=== PATIENT | female | born 1995 | race American Indian/Alaskan Native ===

== ENCOUNTER 2019-01-27 08:07 | Emergency (ER) | payer MEDICAID ==
[2019-01-27 09:02] LABS: Bilirubin,Urine NEG (Negative); Blood,Urine NEG (Negative); Color,Urine Yellow (Yellow); Mucus,Urine FEW /HPF; Protein,Urine <15 mg/dL mg/dL (Negative); RBC,Urine < 1.0 /HPF (0.0-6.0); Urobilinogen,Urine < 2.0 mg/dL (<2.0)
[2019-01-27 09:03] LABS: HCG Qualitative,Urine Positive (Negative)
[2019-01-27 09:18] LABS: Basophils % (Auto) 0.5 % (0.0-1.8); Eosinophils # (Auto) 0.1 K/mm3 (0.0-0.4); Eosinophils % (Auto) 1.1 % (0.0-4.3); Hematocrit 35.6 % (30.3-42.9); Hemoglobin 11.8 gm/dl (10.1-14.3); Lymphocytes % (Auto) 21.6 % (13.4-35.0); Mean Corpuscular HGB Conc 33 % (30-34); Mean Corpuscular Volume 82 fl (79-97); Monocytes # (Auto) 0.5 K/mm3 (0.0-0.8); Monocytes % (Auto) 5.7 % (0.0-7.3); Platelet Count 340 K/mm3 (140-440); Red Blood Count 4.31 M/mm3 (3.65-5.03); Red Cell Distribution Width 13.2 % (13.2-15.2)
--- NOTE | 2019-01-27 09:55 | Ultrasound Report ---
ULTRASOUND OB LESS THAN 14 WEEKS FETUS ULTRASOUND OB TRANSVAGINAL HISTORY: with abdominal pain/bleeding FINDINGS: No comparison. Transabdominal and transvaginal ultrasound imaging was performed. The uterus is anteverted and measures 10 x 5 x 6 cm. An intrauterine gestational sac containing a small yolk sac is identified. Gestational sac diameter measures 20.5 mm which correlates with a 7 week 0 day . No convincing pole or cardiac activity could be demonstrated. There is suggestion of a small subchorionic hemorrhage along the inferior border of the gestational sac. The ovaries are normal size, contour and echotexture. No adnexal cyst or mass. No pelvic fluid collection. IMPRESSION: An intrauterine gestational sac containing a yolk sac is identified but no convincing pole or cardiac activity identified. This could represent a normal early . Blighted ovum could also be considered. Close interval followup is recommended. Small subchorionic hemorrhage.
--- NOTE | 2019-01-27 10:12 | Emergency Department Report ---
ED HPI - General Chief complaint: Vaginal Bleeding Stated complaint: STOMACH PAIN/LIGHT BLEEDING/PAIN Time Seen by Provider: 01/27/19 08:47 Source: patient Mode of arrival: Ambulatory Limitations: No Limitations - History of Present Illness Initial comments: Patient is a 23-year-old female who is approximate 5 weeks and whose last missed her period was 12/22/2018 who is here complaining of some lower abdominal discomfort and vaginal bleeding. He states vaginal bleeding started this morning and his decreased. Patient states she saw blood when she wiped after using the bathroom. Patient has some mild crampy lower abdominal discomfort. Patient also states she's felt very weak and fatigued for the last several days. Patient denies any dysuria or urinary frequency fevers chills nausea vomiting and diarrhea at this time. - Related Data Allergies Allergy/AdvReac Type Severity Reaction Status Date / Time No Known Allergies Allergy Unverified 01/27/19 08:08 ED Review of Systems ROS: Stated complaint: STOMACH PAIN/LIGHT BLEEDING/PAIN Other details as noted in HPI Comment: All other systems reviewed and negative ED Past Medical Hx - Past Medical History Previous Medical History?: No - Surgical History Past Surgical History?: No - Social History Smoking Status: Never Smoker Substance Use Type: None ED Physical Exam - General Limitations: No Limitations General appearance: alert, in no apparent distress - Head Head exam: Present: atraumatic, normocephalic - Eye Eye exam: Present: normal appearance - ENT ENT exam: Present: mucous membranes moist - Neck Neck exam: Present: normal inspection - Respiratory Respiratory exam: Present: normal lung sounds bilaterally. Absent: respiratory distress, wheezes, rales, rhonchi - Cardiovascular Cardiovascular Exam: Present: regular rate, normal rhythm, normal heart sounds. Absent: systolic murmur, diastolic murmur, rubs, gallop - GI/Abdominal GI/Abdominal exam: Present: soft, normal bowel sounds. Absent: distended, tenderness, guarding, rebound, rigid - Extremities Exam Extremities exam: Present: normal inspection - Back Exam Back exam: Present: normal inspection - Neurological Exam Neurological exam: Present: alert, oriented X3 - Psychiatric Psychiatric exam: Present: normal affect, normal mood - Skin Skin exam: Present: warm, dry, intact, normal color. Absent: rash ED Course Vital Signs 01/27/19 08:11 Temperature 98.5 F Pulse Rate 93 H Respiratory 16 Rate Blood Pressure 135/79 O2 Sat by Pulse 99 Oximetry ED Medical Decision Making - Lab Data Result diagrams: 01/27/19 09:08 Lab Results 01/27/19 01/27/19 01/27/19 Range/Units 08:48 09:08 09:08 WBC 9.3 (4.5-11.0) K/mm3 RBC 4.31 (3.65-5.03) M/mm3 Hgb 11.8 (10.1-14.3) gm/dl Hct 35.6 (30.3-42.9) % MCV 82 (79-97) fl MCH 27 L (28-32) pg MCHC 33 (30-34) % RDW 13.2 (13.2-15.2) % Plt Count 340 (140-440) K/mm3 Lymph % (Auto) 21.6 (13.4-35.0) % [place] % (Auto) 5.7 (0.0-7.3) % Eos % (Auto) 1.1 (0.0-4.3) % Baso % (Auto) 0.5 (0.0-1.8) % Lymph # 2.0 (1.2-5.4) K/mm3 [place] # 0.5 (0.0-0.8) K/mm3 Eos # 0.1 (0.0-0.4) K/mm3 Baso # 0.0 (0.0-0.1) K/mm3 Seg Neutrophils % 71.1 H (40.0-70.0) % Seg Neutrophils # 6.6 (1.8-7.7) K/mm3 HCG, Quant 54311 H (0-4) mIU/mL Urine Color Yellow (Yellow) Urine Turbidity Clear (Clear) Urine pH 5.0 (5.0-7.0) Ur Specific [place] 1.021 (1.003-1.030) Urine Protein <15 mg/dl (Negative) mg/dL Urine Glucose (UA) Neg (Negative) mg/dL Urine Ketones Neg (Negative) mg/dL Urine Blood Neg (Negative) Urine Nitrite Neg (Negative) Urine Bilirubin Neg (Negative) Urine Urobilinogen < 2.0 (<2.0) mg/dL Ur Leukocyte Esterase Neg (Negative) Urine WBC (Auto) 1.0 (0.0-6.0) /HPF Urine RBC (Auto) < 1.0 (0.0-6.0) /HPF U Epithel Cells (Auto) 2.0 (0-13.0) /HPF Urine Mucus Few /HPF Urine HCG, Qual Positive A (Negative) Blood Type 01/27/19 Range/Units 09:08 WBC (4.5-11.0) K/mm3 RBC (3.65-5.03) M/mm3 Hgb (10.1-14.3) gm/dl Hct (30.3-42.9) % MCV (79-97) fl MCH (28-32) pg MCHC (30-34) % RDW (13.2-15.2) % Plt Count (140-440) K/mm3 Lymph % (Auto) (13.4-35.0) % [place] % (Auto) (0.0-7.3) % Eos % (Auto) (0.0-4.3) % Baso % (Auto) (0.0-1.8) % Lymph # (1.2-5.4) K/mm3 [place] # (0.0-0.8) K/mm3 Eos # (0.0-0.4) K/mm3 Baso # (0.0-0.1) K/mm3 Seg Neutrophils % (40.0-70.0) % Seg Neutrophils # (1.8-7.7) K/mm3 HCG, Quant (0-4) mIU/mL Urine Color (Yellow) Urine Turbidity (Clear) Urine pH (5.0-7.0) Ur Specific [place] (1.003-1.030) Urine Protein (Negative) mg/dL Urine Glucose (UA) (Negative) mg/dL Urine Ketones (Negative) mg/dL Urine Blood (Negative) Urine Nitrite (Negative) Urine Bilirubin (Negative) Urine Urobilinogen (<2.0) mg/dL Ur Leukocyte Esterase (Negative) Urine WBC (Auto) (0.0-6.0) /HPF Urine RBC (Auto) (0.0-6.0) /HPF U Epithel Cells (Auto) (0-13.0) /HPF Urine Mucus /HPF Urine HCG, Qual (Negative) Blood Type B POSITIVE - Radiology Data [facility] [address] [place] [address] Ultrasound Report Signed Patient: VEENA GOMEZ MR#: [id number] : 1995 Acct:[id number] Age/Sex: 23 / F ADM Date: 01/27/19 Loc: ED Attending Dr: Ordering Physician: AURE NARAYANAN MD Date of Service: 01/27/19 Procedure(s): US OB transvaginal Accession Number(s): [id number] cc: AURE NARAYANAN MD ULTRASOUND OB LESS THAN 14 WEEKS FETUS ULTRASOUND OB TRANSVAGINAL HISTORY: with abdominal pain/bleeding FINDINGS: No comparison. Transabdominal and transvaginal ultrasound imaging was performed. The uterus is anteverted and measures 10 x 5 x 6 cm. An intrauterine gestational sac containing a small yolk sac is identified. Gestational sac diameter measures 20.5 mm which correlates with a 7 week 0 day . No convincing pole or cardiac activity could be demonstrated. There is suggestion of a small subchorionic hemorrhage along the inferior border of the gestational sac. The ovaries are normal size, contour and echotexture. No adnexal cyst or mass. No pelvic fluid collection. IMPRESSION: An intrauterine gestational sac containing a yolk sac is identified but no convincing pole or cardiac activity identified. This could represent a normal early . Blighted ovum could also be considered. Close interval followup is recommended. Small subchorionic hemorrhage. Transcribed By: TTR Dictated By: ORI ALEXANDER JR, MD Electronically Authenticated By: ORI ALEXANDER JR, MD Signed Date/Time: 01/27/19949 DD/ 6 TD/TT: 01/27/1950 - Medical Decision Making Patient is a 23-year-old black female who is presenting status post vaginal bleeding and . Ultrasound shows a gestational sac without pole. Patient does have a clot that correlates with the ultrasound findings. Patient will need repeat Quant and 2-3 days. Critical care attestation.: If time is entered above; I have spent that time in minutes in the direct care of this critically ill patient, excluding procedure time. ED Disposition Clinical Impression: Threatened miscarriage Disposition: DC-01 TO HOME OR SELFCARE Is pt being admited?: No Does the pt Need Aspirin: No Condition: Stable Additional Instructions: Your beta quantitative today was 22,900. Please have this repeated in 2-3 days with your [employer] or return to the emergency department. Referrals: PRIMARY CARE,MD [Primary Care Provider] - 3-5 Days Time of Disposition: 10:50
[2019-01-27 11:04] VITALS: BP 131/78
== END 2019-01-27 11:03 | disposition home or self-care (01) ==
LOC: ED 08:07
DX: O20.0 Threatened abortion (principal); Z3A.01 Less than 8 weeks gestation of pregnancy
CPT/HCPCS: 36415; 76801; 76817; 81001; 81025; 84702; 85025; 86900; 86901; 99284

== ENCOUNTER 2019-01-30 10:04 | Emergency (ER) | payer MEDICAID ==
--- NOTE | 2019-01-30 10:30 | Emergency Department Report ---
ED Recheck HPI - General Chief Complaint: Recheck/Abnormal Lab/Rx Stated Complaint: MISCARRIAGE/ABD PAIN Time Seen by Provider: 01/30/19 10:29 Source: patient Mode of arrival: Ambulatory Limitations: No Limitations - History of Present Illness Initial Comments: 23 YO COMES TO ER PER INSTRUCTIONS FOR HCG RE-CHECK. SHE IS HAVING NO PAIN OR BLEEDING. LMP 4-1 [facility]- HAS APPNT SUNDAY - Related Data Allergies Allergy/AdvReac Type Severity Reaction Status Date / Time No Known Allergies Allergy Verified 01/30/19 10:06 ED Review of Systems ROS: Stated complaint: MISCARRIAGE/ABD PAIN Other details as noted in HPI Comment: All other systems reviewed and negative ED Past Medical Hx - Past Medical History Previous Medical History?: No - Surgical History Past Surgical History?: No - Family History Family history: no significant - Social History Smoking Status: Never Smoker Substance Use Type: None ED Physical Exam - General Limitations: No Limitations - Other Other exam information: - Head Head exam: Present: atraumatic, normocephalic - Eye Eye exam: Present: normal appearance, EOMI. Absent: nystagmus - ENT ENT exam: Present: normal exam, normal orophraynx, mucous membranes moist, normal external ear exam, no lymphadenopathy - Neck Neck exam: Present: normal inspection, full ROM. Absent: tenderness, meningismus - Respiratory Respiratory exam: Present: normal lung sounds bilaterally. Absent: respiratory distress, wheezes, rales, rhonchi, stridor, chest wall tenderness, accessory muscle use, decreased breath sounds, prolonged expiratory - Cardiovascular Cardiovascular Exam: Present: regular rate, normal rhythm, normal heart sounds. Absent: bradycardia, tachycardia, irregular rhythm, systolic murmur, diastolic murmur, rubs, gallop, JVD, edema - GI/Abdominal GI/Abdominal exam: Present: soft, non tender on light and deep palpation. Absent: distended, tenderness, guarding, rebound, rigid, pulsatile mass - Rectal Rectal exam: Present: deferred - Extremities Exam Extremities exam: Present: normal inspection, full ROM, other (2+ pulses noted in the bilateral upper extremities. Bilateral lower extremities with 2+ DP bilateral. Full ROM. Absent: calf tenderness - Back Exam Back exam: Present: normal inspection, full ROM. Absent: tenderness, CVA tenderness (R), CVA tenderness (L), paraspinal tenderness, vertebral tenderness - Neurological Exam Neurological exam: Present: alert, oriented X3, normal gait, other (Extraocular movements intact. Tongue midline. No facial droop. Facial sensation intact to light touch in the V1, V2, V3 distribution bilaterally. 5 and 5 strength in 4 extremities.. Sensation is intact to light touch in 4 extremities.). Absent: motor sensory deficit - Psychiatric Psychiatric exam: normal affect and mood - Skin Skin exam: Present: warm, dry, intact, normal color. Absent: rash ED Course Vital Signs 01/30/19 10:08 Temperature 97.9 F Pulse Rate 100 H Respiratory 20 Rate Blood Pressure 111/79 O2 Sat by Pulse 98 Oximetry ED Recheck MDM - Core Measures Measure Exclusions: not indicated - Differential Diagnosis Recheck of Abnormal Lab ro ab - Medical Decision Making RH pos HCG HAS INC SINCE LAST VISIT NO PAIN NO VAG BLEED VSS HAS OB APPNT WITH [facility] ON SUNDAY DC HOME WITH DC PLAN- PELVIC REST, TYLENOL PRN, VITAMIN Vital Signs 01/30/19 10:08 Temperature 97.9 F Pulse Rate 100 H Respiratory 20 Rate Blood Pressure 111/79 O2 Sat by Pulse 98 Oximetry Labs 01/30/19 10:19 HCG, Quant [id number] H Critical care attestation.: If time is entered above; I have spent that time in minutes in the direct care of this critically ill patient, excluding procedure time. ED Disposition Clinical Impression: Threatened miscarriage, Disposition: DC-01 TO HOME OR SELFCARE Is pt being admited?: No Does the pt Need Aspirin: No Condition: Stable Additional Instructions: FOLLOW UP WITH OBGYN ON SUNDAY TYLENOL FOR PAIN NOTHING IN VAGINA NO SEX VITAMIN [place] [address] [place] [id number] Referrals: BILLY MALAGON MD [Staff Physician] - 3-5 Days Time of Disposition: 10:36
[2019-01-30 11:56] VITALS: BP 110/68
== END 2019-01-30 11:45 | disposition home or self-care (01) ==
LOC: ED 10:04
DX: O20.0 Threatened abortion (principal); Z3A.01 Less than 8 weeks gestation of pregnancy
CPT/HCPCS: 36415; 84702; 99283

== ENCOUNTER 2019-06-24 19:56 | Outpatient (CLI) | payer MEDICAID ==
[2019-06-24 20:36] VITALS: BP 124/61
[2019-06-24 23:05] LABS: Bacteria,Urine 3+ /HPF (Negative); Bilirubin,Urine NEG (Negative); Blood,Urine NEG (Negative); Color,Urine Yellow (Yellow); Mucus,Urine FEW /HPF; Protein,Urine <15 mg/dL mg/dL (Negative); Urobilinogen,Urine < 2.0 mg/dL (<2.0)
[2019-06-24] MEDS ORDERED: TYLENOL PO ONE (23:09)
== END 2019-06-24 23:15 | disposition home or self-care (01) ==
LOC: TRG 19:56
PROVIDERS: ATTEND Obstetrics & Gynecology
DX: O47.02 False labor before 37 completed weeks of gestation, second trimester (principal); Z3A.26 26 weeks gestation of pregnancy
CPT/HCPCS: 81001

== ENCOUNTER 2019-08-24 21:33 | Outpatient (CLI) | payer MEDICAID ==
[2019-08-24] MEDS ORDERED: LACTATED RINGERS 500 ML IV ONE (21:58)
[2019-08-24] MEDS ORDERED: LACTATED RINGERS 1,000 ML IV SCH (22:00)
[2019-08-24] MEDS ORDERED: LACTATED RINGERS 500 ML IV SOLN IV ONE (22:00)
[2019-08-24 22:05] VITALS: BP 123/57
[2019-08-24] MEDS ORDERED: ACETAMINOPHEN 325 MG TAB PO ONE (23:26)
[2019-08-25 00:23] LABS: Bacteria,Urine 1+ /HPF (Negative); Bilirubin,Urine NEG (Negative); Blood,Urine NEG (Negative); Color,Urine Amber (Yellow); Mucus,Urine 3+ /HPF
== END 2019-08-25 02:07 | disposition home or self-care (01) ==
LOC: TRG 21:33
PROVIDERS: ATTEND Obstetrics & Gynecology
DX: O62.9 Abnormality of forces of labor, unspecified (principal); O26.893 Other specified pregnancy related conditions, third trimester; R06.02 Shortness of breath; Z3A.35 35 weeks gestation of pregnancy
CPT/HCPCS: 81001; 87400; 87502; 96360; 96361; J7120

== ENCOUNTER 2019-10-25 00:46 | Emergency (ER) | payer MEDICAID ==
[2019-10-25] MEDS ORDERED: ALUM-MAG HYDROXIDE-SIMETHICONE 200-200-20MG/5ML ORAL LIQD 30 ML PO ONE (01:23)
[2019-10-25] MEDS ORDERED: LIDOCAINE VISCOUS 2% 15 ML ORAL LIQD PO ONE (01:24)
[2019-10-25] MEDS ORDERED: HYDROcodone/ACETAMINOPHEN 5-325 MG TAB PO ONE (01:24)
[2019-10-25 01:26] LABS: Basophils # (Auto) 0.1 K/mm3 (0.0-0.1); Basophils % (Auto) 0.6 % (0.0-1.8); Eosinophils # (Auto) 0.1 K/mm3 (0.0-0.4); Eosinophils % (Auto) 1.2 % (0.0-4.3); Hematocrit 39.9 % (30.3-42.9); Hemoglobin 13.2 gm/dl (10.1-14.3); Lymphocytes # (Auto) 2.9 K/mm3 (1.2-5.4); Lymphocytes % (Auto) 28.4 % (13.4-35.0); Mean Corpuscular HGB Conc 33 % (30-34); Mean Corpuscular Volume 80 fl (79-97); Monocytes # (Auto) 0.6 K/mm3 (0.0-0.8); Monocytes % (Auto) 5.4 % (0.0-7.3); Platelet Count 325 K/mm3 (140-440); Red Blood Count 4.99 M/mm3 (3.65-5.03); Red Cell Distribution Width 15.1 % (13.2-15.2)
[2019-10-25 01:30] LABS: Bilirubin,Urine NEG (Negative); Blood,Urine SM (Negative); Color,Urine Yellow (Yellow); Mucus,Urine FEW /HPF; Protein,Urine <15 mg/dL mg/dL (Negative); Urobilinogen,Urine < 2.0 mg/dL (<2.0)
[2019-10-25 01:47] LABS: Alanine Aminotransferase 24 units/L (7-56); BUN/Creatinine Ratio 13; Blood Urea Nitrogen 9 mg/dL (7-17); Calcium 9.4 mg/dL (8.4-10.2); Hemolysis Index 1
--- NOTE | 2019-10-25 02:52 | XRay Report ---
ACUTE ABDOMINAL SERIES 5 VIEWS INDICATION: abd pain. COMPARISON: No relevant prior imaging study available. FINDINGS: No abnormalities on the included chest radiograph. No free air is seen. There is mild constipation. No small bowel dilatation. Phleboliths are noted in the pelvis. IMPRESSION: 1. Constipation. Signer Name: Armand Vallejo MD Signed: 10/25/2019 2:47 AM Workstation Name: [email or web address]
--- NOTE | 2019-10-25 02:58 | Ultrasound Report ---
ULTRASOUND ABDOMEN, LIMITED (RIGHT UPPER QUADRANT) INDICATION: ruq pain. COMPARISON: None available. FINDINGS: Pancreas: Visualized portion shows no significant abnormality. Liver: Normal. Gallbladder: There is minimal cholelithiasis. The gallbladder is otherwise unremarkable. Bile ducts: Normal. Common Bile Duct measures 4 mm. Free fluid: None. Additional Findings: None. IMPRESSION: 1. Minimal cholelithiasis. No sonographic evidence of acute cholecystitis. Signer Name: Armand Vallejo MD Signed: 10/25/2019 2:54 AM Workstation Name: [id number]
[2019-10-25] MEDS ORDERED: MAGNESIUM CITRATE 300 ML ORAL LIQD PO ONE (03:07)
--- NOTE | 2019-10-25 03:09 | Emergency Department Report ---
ED Abdominal Pain HPI - General Chief Complaint: Abdominal Pain Stated Complaint: ABD PAIN Time Seen by Provider: 10/25/19 01:23 Source: patient Mode of arrival: Stretcher Limitations: No Limitations - History of Present Illness Initial Comments: 6 weeks post , not yet sexually active. Severity scale (0 -10): 5 - Related Data Previous Rx's Medication Instructions Recorded Last Taken Type Ferrous Sulfate [Feosol 325 MG tab] 325 mg PO BID #60 tablet 09/18/19 Unknown Rx HYDROcodone/APAP 5-325 [[place] 1 each PO Q6HR PRN #20 tablet 09/18/19 Unknown Rx 5/325] Ibuprofen [Motrin] 800 mg PO Q8HR PRN #30 tablet 09/18/19 Unknown Rx Allergies Allergy/AdvReac Type Severity Reaction Status Date / Time No Known Allergies Allergy Verified 10/25/19 00:52 ED Review of Systems ROS: Stated complaint: ABD PAIN Other details as noted in HPI ED Past Medical Hx - Past Medical History Previous Medical History?: No Hx Hypertension: No Hx Diabetes: No Hx Deep Vein Thrombosis: No Hx Renal Disease: No Hx Sickle Cell Disease: No Hx Seizures: No Hx Asthma: No Hx HIV: No - Surgical History Past Surgical History?: No - Social History Smoking Status: Current Some Day Smoker - Medications Home Medications: Home Medications Medication Instructions Recorded Confirmed Last Taken Type Ferrous Sulfate [Feosol 325 MG tab] 325 mg PO BID #60 tablet 09/18/19 Unknown Rx HYDROcodone/APAP 5-325 [[place] 1 each PO Q6HR PRN #20 tablet 09/18/19 Unknown Rx 5/325] Ibuprofen [Motrin] 800 mg PO Q8HR PRN #30 tablet 09/18/19 Unknown Rx ED Physical Exam - General Limitations: No Limitations ED Course Vital Signs 10/25/19 10/25/19 00:56 01:36 Temperature 98.0 F Pulse Rate 89 Respiratory 16 20 Rate Blood Pressure 128/75 O2 Sat by Pulse 95 Oximetry ED Medical Decision Making - Lab Data Result diagrams: 10/25/19 01:06 10/25/19 01:06 Critical care attestation.: If time is entered above; I have spent that time in minutes in the direct care of this critically ill patient, excluding procedure time. ED Disposition Condition: Stable Instructions: Abdominal Pain (ED) Referrals: PRIMARY CARE, [Primary Care Provider] - 3-5 Days
[2019-10-25 04:30] VITALS: BP 120/65
== END 2019-10-25 03:30 | disposition home or self-care (01) ==
LOC: ED 00:46
DX: O90.89 Other complications of the puerperium, not elsewhere classified (principal); R10.9 Unspecified abdominal pain; F17.200 Nicotine dependence, unspecified, uncomplicated; Z79.1 Long term (current) use of non-steroidal anti-inflammatories (NSAID); Z79.899 Other long term (current) drug therapy
CPT/HCPCS: 36415; 74022; 76705; 80053; 81001; 85025

== ENCOUNTER 2019-11-13 11:28 | Emergency (ER) | payer MEDICAID | END 2019-11-13 13:20 | disposition left against medical advice (07) | LOC: ED 11:28 | DX: R10.9 Unspecified abdominal pain (principal); Z53.21 Procedure and treatment not carried out due to patient leaving prior to being seen by health care provider ==

== ENCOUNTER 2019-11-14 04:08 | Emergency (ER) | payer MEDICAID ==
[2019-11-14 04:29] VITALS: BP 112/72
--- NOTE | 2019-11-14 04:55 | XRay Report ---
CHEST 1 VIEW INDICATION / CLINICAL INFORMATION: Chest Pain. COMPARISON: 10/25/2019 FINDINGS: SUPPORT DEVICES: None. HEART / MEDIASTINUM: No significant abnormality. LUNGS / PLEURA: No significant pulmonary or pleural abnormality. No pneumothorax. ADDITIONAL FINDINGS: No significant additional findings. IMPRESSION: 1. No acute findings. No interval change from prior chest radiograph. Signer Name: Cordelia Bautista MD Signed: 11/14/2019 4:50 AM Workstation Name: [id number]
[2019-11-14 05:04] LABS: Basophils # (Auto) 0.1 K/mm3 (0.0-0.1); Basophils % (Auto) 0.6 % (0.0-1.8); Eosinophils # (Auto) 0.1 K/mm3 (0.0-0.4); Eosinophils % (Auto) 0.7 % (0.0-4.3); Hematocrit 40.2 % (30.3-42.9); Hemoglobin 13.2 gm/dl (10.1-14.3); Lymphocytes # (Auto) 2.5 K/mm3 (1.2-5.4); Lymphocytes % (Auto) 26.1 % (13.4-35.0); Mean Corpuscular HGB Conc 33 % (30-34); Mean Corpuscular Volume 80 fl (79-97); Monocytes # (Auto) 0.4 K/mm3 (0.0-0.8); Monocytes % (Auto) 4.3 % (0.0-7.3); Platelet Count 403 K/mm3 (140-440); Red Cell Distribution Width 15.2 % (13.2-15.2)
[2019-11-14 05:29] LABS: Alanine Aminotransferase 69 units/L (7-56); Albumin 4.2 g/dL (3.9-5); BUN/Creatinine Ratio 11; Blood Urea Nitrogen 8 mg/dL (7-17); Calcium 9.4 mg/dL (8.4-10.2); Hemolysis Index 0
[2019-11-14] MEDS ORDERED: ALUM-MAG HYDROXIDE-SIMETHICONE 200-200-20MG/5ML ORAL LIQD 30 ML PO ONE (06:00)
[2019-11-14] MEDS ORDERED: FAMOTIDINE 20 MG TAB PO ONE (06:00)
[2019-11-14] MEDS ORDERED: LIDOCAINE VISCOUS 2% 15 ML ORAL LIQD PO ONE (06:00)
[2019-11-14 06:54] LABS: Bilirubin,Urine SM (Negative); Blood,Urine SM (Negative); Color,Urine Amber (Yellow); Mucus,Urine 3+ /HPF
--- NOTE | 2019-11-14 06:54 | Ultrasound Report ---
ULTRASOUND ABDOMEN, LIMITED (RIGHT UPPER QUADRANT) INDICATION / CLINICAL INFORMATION: Epigastric pain: r/o cholecytitis. COMPARISON: Prior limited abdominal ultrasound, 10/25/2019 FINDINGS: PANCREAS: Visualized portion shows no significant abnormality. LIVER: No significant abnormality. GALLBLADDER: There are a few small gallstones present within the gallbladder lumen. No gallbladder wa ll thickening. BILE DUCTS: No significant abnormality. Common bile duct measures 5-6 mm mm. FREE FLUID: None. ADDITIONAL FINDINGS: Right kidney is unremarkable. IMPRESSION: 1. Cholelithiasis without sonographic evidence for acute cholecystitis. Signer Name: Cordelia Bautista MD Signed: 11/14/2019 6:50 AM Workstation Name: [id number]
[2019-11-14 06:58] LABS: Ictotest,Urine Positive (Negative)
--- NOTE | 2019-11-14 07:33 | Emergency Department Report ---
ED Abdominal Pain HPI - General Chief Complaint: Chest Pain Stated Complaint: ABD PAIN/CP Source: patient Mode of arrival: Ambulatory Limitations: No Limitations - History of Present Illness Initial Comments: Patient is a 24-year-old -Swazi female with no past medical history who presents to the ED with complaint of acute onset persistent epigastric pain that radiates to the substernal chest area with intermittent nausea and vomiting for the last 2 weeks worse in the last 2 days. Patient denies fever, chills, cough, sore throat, diarrhea, dysuria, urinary frequency and urgency, syncope, headache, nasal and sinus congestion or shortness of breath. MD Complaint: abdominal pain, other (Nausea and vomiting) -: Gradual, week(s) (2) Location: epigastric Radiation: epigastric, chest Migration to: no migration Severity: moderate Severity scale (0 -10): 6 Quality: aching, burning Consistency: intermittent Improves With: nothing Worsens With: eating Associated Symptoms: denies other symptoms, nausea, vomiting. denies: diarrhea, fever, chills, dysuria, hematemesis, hematochezia, melena, anorexia, syncope - Related Data LMP Date: 11/02/19 Previous Rx's Medication Instructions Recorded Last Taken Type Ferrous Sulfate [Feosol 325 MG tab] 325 mg PO BID #60 tablet 09/18/19 Unknown Rx HYDROcodone/APAP 5-325 [[place] 1 each PO Q6HR PRN #20 tablet 09/18/19 Unknown Rx 5/325] Ibuprofen [Motrin] 800 mg PO Q8HR PRN #30 tablet 09/18/19 Unknown Rx Dicyclomine [Bentyl] 20 mg PO Q6H PRN #30 tablet 11/14/19 Unknown Rx Famotidine [Pepcid] 20 mg PO Q12H #60 tablet 11/14/19 Unknown Rx Ondansetron [Zofran Odt] 4 mg PO Q6HR PRN #20 tab.rapdis 11/14/19 Unknown Rx Allergies Allergy/AdvReac Type Severity Reaction Status Date / Time No Known Allergies Allergy Verified 10/25/19 00:52 ED Review of Systems ROS: Stated complaint: ABD PAIN/CP Other details as noted in HPI Constitutional: denies: chills, fever Eyes: denies: eye pain, eye discharge, vision change ENT: denies: ear pain, throat pain Respiratory: denies: cough, shortness of breath, wheezing Cardiovascular: chest pain (Substernal chest pain). denies: palpitations Endocrine: no symptoms reported Gastrointestinal: abdominal pain (Epigastric pain radiating to the substernal chest area), nausea, vomiting. denies: diarrhea Genitourinary: denies: urgency, dysuria, discharge Musculoskeletal: denies: back pain, joint swelling, arthralgia Skin: denies: rash, lesions Neurological: denies: headache, weakness, paresthesias Psychiatric: denies: anxiety, depression Hematological/Lymphatic: denies: easy bleeding, easy bruising ED Past Medical Hx - Past Medical History Previous Medical History?: No Hx Hypertension: No Hx Diabetes: No Hx Deep Vein Thrombosis: No Hx Renal Disease: No Hx Sickle Cell Disease: No Hx Seizures: No Hx Asthma: No Hx HIV: No - Surgical History Past Surgical History?: No - Social History Smoking Status: Never Smoker Substance Use Type: None - Medications Home Medications: Home Medications Medication Instructions Recorded Confirmed Last Taken Type Ferrous Sulfate [Feosol 325 MG tab] 325 mg PO BID #60 tablet 09/18/19 Unknown Rx HYDROcodone/APAP 5-325 [[place] 1 each PO Q6HR PRN #20 tablet 09/18/19 Unknown Rx 5/325] Ibuprofen [Motrin] 800 mg PO Q8HR PRN #30 tablet 09/18/19 Unknown Rx Dicyclomine [Bentyl] 20 mg PO Q6H PRN #30 tablet 11/14/19 Unknown Rx Famotidine [Pepcid] 20 mg PO Q12H #60 tablet 11/14/19 Unknown Rx Ondansetron [Zofran Odt] 4 mg PO Q6HR PRN #20 tab.rapdis 11/14/19 Unknown Rx ED Physical Exam - General Limitations: No Limitations General appearance: alert, in no apparent distress - Head Head exam: Present: atraumatic, normocephalic, normal inspection - Eye Eye exam: Present: normal appearance, PERRL, EOMI - ENT ENT exam: Present: normal exam, normal orophraynx, mucous membranes moist, TM's normal bilaterally, normal external ear exam - Neck Neck exam: Present: normal inspection, full ROM - Respiratory Respiratory exam: Present: normal lung sounds bilaterally. Absent: respiratory distress, wheezes, rales, chest wall tenderness, accessory muscle use, prolonged expiratory - Cardiovascular Cardiovascular Exam: Present: regular rate, normal rhythm, normal heart sounds. Absent: systolic murmur, diastolic murmur, rubs, gallop - GI/Abdominal GI/Abdominal exam: Present: soft, tenderness (Mild epigastric tenderness), normal bowel sounds. Absent: guarding, rebound, hyperactive bowel sounds - Extremities Exam Extremities exam: Present: normal inspection, full ROM, normal capillary refill - Back Exam Back exam: Present: normal inspection, full ROM. Absent: tenderness, CVA t enderness (R), CVA tenderness (L), muscle spasm, paraspinal tenderness - Neurological Exam Neurological exam: Present: alert, oriented X3, CN II-XII intact, normal gait, reflexes normal - Psychiatric Psychiatric exam: Present: normal affect, normal mood - Skin Skin exam: Present: warm, dry, intact, normal color. Absent: rash ED Course Vital Signs 11/14/19 04:27 Temperature 98.3 F Pulse Rate 75 Respiratory 20 Rate Blood Pressure 112/72 O2 Sat by Pulse 97 Oximetry ED Medical Decision Making - Lab Data Result diagrams: 11/14/19 04:50 11/14/19 04:50 - Radiology Data Radiology results: report reviewed, image reviewed Findings [facility] [address] [place] [address] XRay Report Signed Patient: VEENA GOMEZ MR#: [id number] : 1995 Acct:[id number] Age/Sex: 24 / F ADM Date: 11/14/19 Loc: ED Attending Dr: Ordering Physician: ED MD CORINA Date of Service: 11/14/19 Procedure(s): XR chest 1V ap Accession Number(s): [id number] cc: ED MD CORINA Fluoro Time In Minutes: CHEST 1 VIEW INDICATION / CLINICAL INFORMATION: Chest Pain. COMPARISON: 10/25/2019 FINDINGS: SUPPORT DEVICES: None. HEART / MEDIASTINUM: No significant abnormality. LUNGS / PLEURA: No significant pulmonary or pleural abnormality. No pneumothorax. ADDITIONAL FINDINGS: No significant additional findings. IMPRESSION: 1. No acute findings. No interval change from prior chest radiograph. Signer Name: Cordelia Bautista MD Signed: 11/14/2019 4:50 AM Workstation Name: [id number] Data Transcribed By: Dictated By: Cordelia Bautista MD Electronically Authenticated By: Cordelia Bautista MD Signed Date/Time: 11/14/19449 DD/ 9 TD/TT: Findings [facility] [address] [place] [address] Ultrasound Report Signed Patient: VEENA GOMEZ MR#: [id number] : 1995 Acct:[id number] Age/Sex: 24 / F ADM Date: 11/14/19 Loc: ED Attending Dr: Ordering Physician: ALEXIS GREER Date of Service: 11/14/19 Procedure(s): US abdomen limited Accession Number(s): [id number] cc: ALEXIS GREER ULTRASOUND ABDOMEN, LIMITED (RIGHT UPPER QUADRANT) INDICATION / CLINICAL INFORMATION: Epigastric pain: r/o cholecytitis. COMPARISON: Prior limited abdominal ultrasound, 10/25/2019 FINDINGS: PANCREAS: Visualized portion shows no significant abnormality. LIVER: No significant abnormality. GALLBLADDER: There are a few small gallstones present within the gallbladder lumen. No gallbladder wall thickening. BILE DUCTS: No significant abnormality. Common bile duct measures 5-6 mm mm. FREE FLUID: None. ADDITIONAL FINDINGS: Right kidney is unremarkable. IMPRESSION: 1. Cholelithiasis without sonographic evidence for acute cholecystitis. Signer Name: Cordelia Bautista MD Signed: 11/14/2019 6:50 AM Workstation Name: [id number] Transcribed By: Dictated By: Cordelia Bautista MD Electronically Authenticated By: Cordelia Bautista MD Signed Date/Time: 11/14/19 0650 DD/ 0647 TD/TT: - Medical Decision Making This is a 24-year-old female who presented to the ED with persistent epigastric pain that radiates to the substernal chest wall with nausea and vomiting intermittently for the last 2 weeks. In the ED, patient is alert and oriented x3 and is not in any distress. Lab test results were reviewed and are all nonactionable except for elevated liver enzymes characterized by AST of 81, ALT of 69, alk phos of 131 and total bilirubin of 2.0. The rest of the lab test results are unremarkable and nonactionable. Chest x-ray shows no acute cardiopulmonary abnormalities or pneumonitis. Gallbladder ultrasound shows cholelithiasis without sonographic evidence for acute cholecystitis, which is unchanged from over 2 weeks ago when another gallbladder ultrasound was performed. Patient was treated initially with antacids and antiemetics in the ED. On reevaluation, patient's pain is well controlled with medications. Patient was discharged home on antacids and antiemetics and was given a referral today general surgeon on-call Dr. You for follow-up. Patient was advised to contact Dr. You's office first thing this morning to schedule a follow-up appointment for possible lap jyoti surgery. Patient was otherwise advised to return to the ED immediately if symptoms get worse. - Differential Diagnosis GERD; Gastritis; Cholelthiasis; Cholecystitis;UTI Critical care attestation.: If time is entered above; I have spent that time in minutes in the direct care of this critically ill patient, excluding procedure time. ED Disposition Clinical Impression: Acute epigastric pain, Cholelithiasis without cholecystitis GERD (gastroesophageal reflux disease) Qualifiers: Esophagitis presence: without esophagitis Qualified Code(s): K21.9 - Gastro- esophageal reflux disease without esophagitis Disposition: DC-01 TO HOME OR SELFCARE Is pt being admited?: No Does the pt Need Aspirin: No Condition: Stable Instructions: Cholelithiasis (ED), Biliary Colic (ED), Gastroesophageal Reflux Disease (ED), Abdominal Pain (ED) Additional Instructions: Take medications with food, drink plenty of fluids and follow-up with the general surgeon on-call Dr. You for follow-up. Please contact Dr. You's office first thing in the morning to schedule a follow-up appointment. Return to the ED immediately if symptoms get worse. Prescriptions: Dicyclomine [Bentyl] 20 mg PO Q6H PRN #30 tablet PRN Reason: Pain , Severe (7-10) Famotidine [Pepcid] 20 mg PO Q12H #60 tablet Ondansetron [Zofran Odt] 4 mg PO Q6HR PRN #20 tab.rapdis PRN Reason: Nausea Referrals: BINH YOU DO [Staff Physician] - KATIE Forms: Work/School Release Form(ED) Time of Disposition: 07:37 Print Language: BULGARIAN
== END 2019-11-14 08:08 | disposition home or self-care (01) ==
LOC: ED 04:08
DX: K21.9 Gastro-esophageal reflux disease without esophagitis (principal); K80.80 Other cholelithiasis without obstruction
CPT/HCPCS: 36415; 71045; 76705; 80053; 81001; 85025; 93005; 93010

== ENCOUNTER 2019-12-14 18:22 | Emergency (ER) | payer MEDICAID ==
[2019-12-14] MEDS ORDERED: LIDOCAINE VISCOUS 2% 15 ML ORAL LIQD PO ONE (20:02)
[2019-12-14] MEDS ORDERED: ONDANSETRON 4 MG/2 ML INJ IV ONE (20:02)
[2019-12-14] MEDS ORDERED: FAMOTIDINE 20 MG/2 ML INJ IV ONE (20:02)
[2019-12-14] MEDS ORDERED: MORPHINE 4 MG/1 ML INJ IV ONE (20:02)
[2019-12-14] MEDS ORDERED: ALUM-MAG HYDROXIDE-SIMETHICONE 200-200-20MG/5ML ORAL LIQD 30 ML PO ONE (20:02)
[2019-12-14 20:29] LABS: Basophils # (Auto) 0.1 K/mm3 (0.0-0.1); Basophils % (Auto) 0.9 % (0.0-1.8); Eosinophils % (Auto) 0.3 % (0.0-4.3); Hematocrit 40.1 % (30.3-42.9); Hemoglobin 13.3 gm/dl (10.1-14.3); Lymphocytes # (Auto) 2.1 K/mm3 (1.2-5.4); Lymphocytes % (Auto) 16.5 % (13.4-35.0); Mean Corpuscular HGB Conc 33 % (30-34); Mean Corpuscular Volume 83 fl (79-97); Monocytes # (Auto) 0.8 K/mm3 (0.0-0.8); Monocytes % (Auto) 5.9 % (0.0-7.3); Platelet Count 368 K/mm3 (140-440); Red Blood Count 4.83 M/mm3 (3.65-5.03); Red Cell Distribution Width 13.8 % (13.2-15.2)
[2019-12-14 20:52] LABS: Alanine Aminotransferase 43 units/L (7-56); Albumin 4.2 g/dL (3.9-5); BUN/Creatinine Ratio 14; Blood Urea Nitrogen 11 mg/dL (7-17); Calcium 9.5 mg/dL (8.4-10.2); Hemolysis Index 38
--- NOTE | 2019-12-14 21:58 | Ultrasound Report ---
ULTRASOUND ABDOMEN, LIMITED (RIGHT UPPER QUADRANT) INDICATION: Right upper quadrant pain. COMPARISON: Limited abdominal ultrasound, 11/14/2019 FINDINGS: Pancreas: The pancreas is not well visualized. Liver: Visualized portions of the liver appear normal in size and echotexture. Gallbladder: The gallbladder contains a moderate amount of stones, as demonstrated on the recent prev ious study. The gallbladder wall measures a maximum thickness of 4 mm. No pericholecystic fluid is vi sualized. Bile ducts: Common Bile Duct is normal in caliber measuring less than 4 mm. Free fluid: None. Additional Findings: None. IMPRESSION: 1. Moderate cholelithiasis without definitive sonographic evidence for cholecystitis. The gallbladder wall is minimally thickened to a maximum of 4 mm, which is likely secondary to partial underdistenti on. Please correlate with patient's clinical circumstances. Signer Name: Lillian Urban MD Signed: 12/14/2019 9:54 PM Workstation Name: [id number]
[2019-12-14 22:19] LABS: Bilirubin,Urine NEG (Negative); Blood,Urine NEG (Negative); Color,Urine Yellow (Yellow); Mucus,Urine FEW /HPF; Protein,Urine <15 mg/dL mg/dL (Negative); Urobilinogen,Urine < 2.0 mg/dL (<2.0)
--- NOTE | 2019-12-14 22:25 | Emergency Department Report ---
ED Abdominal Pain HPI - General Chief Complaint: Abdominal Pain Stated Complaint: STOMACH PAIN Source: patient Mode of arrival: Ambulatory Limitations: No Limitations - History of Present Illness Initial Comments: Patient is a G3, 24-year-old -A[place]ij[place] female with no past medical history who presented to the ED with complaint of acute onset persistent epigastric pain that radiates to the right upper quadrant area with intermittent nausea and vomiting for the last 3 weeks, worse in the last 2 days. Patient states that she was initially evaluated for the same in this ED and was diagnosed with cholelithiasis without cholecystitis and was given a referral to the general surgeon Dr. Sapp but is yet to follow-up with her as her appointment was rescheduled because of Covid-19 viral pandemic outbreak. Patient states that she is scheduled to see the general surgeon on 26 December 2019. Patient states that her pain got worse in the last 2 days and that she has hardly been able to keep anything down because of persistent nausea and vomiting and right upper quadrant and epigastric pain. Patient denies fever, chills, dysuria, urinary frequency and urgency, vaginal bleeding, diarrhea, chest pain, shortness of breath, sore throat, headache, syncope or palpitations. MD Complaint: abdominal pain, other (Nausea and vomiting, recently diagnosed with cholelithiasis without cholecystitis) -: Sudden, week(s) (3) Location: RUQ, epigastric Radiation: RUQ, epigastric Migration to: no migration Severity: severe Severity scale (0 -10): 7 Quality: cramping, aching, sharp Worsens With: eating, vomiting Associated Symptoms: denies other symptoms, nausea, vomiting, anorexia. denies: diarrhea, fever, chills, constipation, dysuria, hematemesis, hematochezia, melena, hematuria, syncope - Related Data LMP Date: 12/07/19 Previous Rx's Medication Instructions Recorded Last Taken Type Ferrous Sulfate [Feosol 325 MG tab] 325 mg PO BID #60 tablet 09/18/19 Unknown Rx HYDROcodone/APAP 5-325 [[place] 1 each PO Q6HR PRN #20 tablet 09/18/19 Unknown Rx 5/325] Ibuprofen [Motrin] 800 mg PO Q8HR PRN #30 tablet 09/18/19 Unknown Rx Dicyclomine [Bentyl] 20 mg PO Q6H PRN #30 tablet 11/14/19 Unknown Rx Famotidine [Pepcid] 20 mg PO Q12H #60 tablet 11/14/19 Unknown Rx Ondansetron [Zofran Odt] 4 mg PO Q6HR PRN #20 tab.rapdis 11/14/19 Unknown Rx Dicyclomine [Bentyl] 20 mg PO Q6H PRN #30 tablet 12/14/19 Unknown Rx Famotidine [Pepcid] 20 mg PO Q12H #60 tablet 12/14/19 Unknown Rx Promethazine [Phenergan] 25 mg PO Q6HR PRN #30 tab 12/14/19 Unknown Rx Allergies Allergy/AdvReac Type Severity Reaction Status Date / Time No Known Allergies Allergy Verified 10/25/19 00:52 ED Review of Systems ROS: Stated complaint: STOMACH PAIN Other details as noted in HPI Constitutional: denies: chills, fever Eyes: denies: eye pain, eye discharge, vision change ENT: denies: ear pain, throat pain Respiratory: denies: cough, shortness of breath, wheezing Cardiovascular: denies: chest pain, palpitations Endocrine: no symptoms reported Gastrointestinal: abdominal pain, nausea, vomiting. denies: diarrhea Genitourinary: denies: urgency, dysuria, discharge Musculoskeletal: denies: back pain, joint swelling, arthralgia Skin: denies: rash, lesions Neurological: denies: headache, weakness, paresthesias Psychiatric: denies: anxiety, depression Hematological/Lymphatic: denies: easy bleeding, easy bruising ED Past Medical Hx - Past Medical History Previous Medical History?: No Hx Hypertension: No Hx Diabetes: No Hx Deep Vein Thrombosis: No Hx Renal Disease: No Hx Sickle Cell Disease: No Hx Seizures: No Hx Asthma: No Hx HIV: No - Social History Smoking Status: Never Smoker Substance Use Type: None - Medications Home Medications: Home Medications Medication Instructions Recorded Confirmed Last Taken Type Ferrous Sulfate [Feosol 325 MG tab] 325 mg PO BID #60 tablet 09/18/19 Unknown Rx HYDROcodone/APAP 5-325 [[place] 1 each PO Q6HR PRN #20 tablet 09/18/19 Unknown Rx 5/325] Ibuprofen [Motrin] 800 mg PO Q8HR PRN #30 tablet 09/18/19 Unknown Rx Dicyclomine [Bentyl] 20 mg PO Q6H PRN #30 tablet 11/14/19 Unknown Rx Famotidine [Pepcid] 20 mg PO Q12H #60 tablet 11/14/19 Unknown Rx Ondansetron [Zofran Odt] 4 mg PO Q6HR PRN #20 tab.rapdis 11/14/19 Unknown Rx Dicyclomine [Bentyl] 20 mg PO Q6H PRN #30 tablet 12/14/19 Unknown Rx Famotidine [Pepcid] 20 mg PO Q12H #60 tablet 12/14/19 Unknown Rx Promethazine [Phenergan] 25 mg PO Q6HR PRN #30 tab 12/14/19 Unknown Rx ED Physical Exam - General Limitations: No Limitations General appearance: alert, in no apparent distress - Head Head exam: Present: atraumatic, normocephalic, normal inspection - Eye Eye exam: Present: normal appearance, PERRL, EOMI Pupils: Present: normal accommodation - ENT ENT exam: Present: normal exam, normal orophraynx, mucous membranes moist, TM's normal bilaterally, normal external ear exam - Neck Neck exam: Present: normal inspection, full ROM - Respiratory Respiratory exam: Present: normal lung sounds bilaterally. Absent: respiratory distress, wheezes, rales, rhonchi, chest wall tenderness, accessory muscle use, decreased breath sounds - Cardiovascular Cardiovascular Exam: Present: regular rate, normal rhythm, normal heart sounds. Absent: systolic murmur, diastolic murmur, rubs, gallop - GI/Abdominal GI/Abdominal exam: Present: soft, tenderness (Palpable epigastric and right upper quadrant tenderness, negative Victor sign), normal bowel sounds. Absent: guarding, rebound, hyperactive bowel sounds - Extremities Exam Extremities exam: Present: normal inspection, full ROM, normal capillary refill - Back Exam Back exam: Present: normal inspection, full ROM. Absent: tenderness, CVA tenderness (R), CVA tenderness (L), muscle spasm, paraspinal tenderness, vertebral tenderness - Neurological Exam Neurological exam: Present: alert, oriented X3, CN II-XII intact, normal gait, reflexes normal - Psychiatric Psychiatric exam: Present: normal affect, normal mood, anxious - Skin Skin exam: Present: warm, dry, intact, normal color. Absent: rash ED Course Vital Signs 12/14/19 12/14/19 18:57 21:05 Temperature 98.3 F Pulse Rate 94 H Respiratory 18 16 Rate Blood Pressure 101/69 [Right] O2 Sat by Pulse 100 Oximetry ED Medical Decision Making - Lab Data Result diagrams: 12/14/19 20:22 12/14/19 20:22 - Radiology Data Radiology results: report reviewed, image reviewed Findings [facility] [address] [place] [address] Ultrasound Report Signed Patient: VEENA GOMEZ MR#: [id number] : 1995 Acct:[id number] Age/Sex: 24 / F ADM Date: 12/14/19 Loc: ED Attending Dr: Ordering Physician: ALEXIS GREER Date of Service: 12/14/19 Procedure(s): US abdomen limited Accession Number(s): [id number] cc: ALEXIS GREER ULTRASOUND ABDOMEN, LIMITED (RIGHT UPPER QUADRANT) INDICATION: Right upper quadrant pain. COMPARISON: Limited abdominal ultrasound, 11/14/2019 FINDINGS: Pancreas: The pancreas is not well visualized. Liver: Visualized portions of the liver appear normal in size and echotexture. Gallbladder: The gallbladder contains a moderate amount of stones, as demonstrated on the recent previous study. The gallbladder wall measures a maximum thickness of 4 mm. No pericholecystic fluid is visualized. Bile ducts: Common Bile Duct is normal in caliber measuring less than 4 mm. Free fluid: None. Additional Findings: None. IMPRESSION: 1. Moderate cholelithiasis without definitive sonographic evidence for cholecystitis. The gallbladder wall is minimally thickened to a maximum of 4 mm, which is likely secondary to partial underdistention. Please correlate with patient's clinical circumstances. Signer Name: Lillian Urban MD Signed: 12/14/2019 9:54 PM Workstation Name: [id number] Transcribed By: EB Dictated By: Lillian Urban MD Electronically Authenticated By: Lillian Urban MD Signed Date/Time: 12/14/192153 DD/ 49 TD/TT: - Medical Decision Making This is a G3, 24-year-old -A[place]ij[place] female with no past medical history who presented to the ED with complaint of acute onset persistent epigastric pain that radiates to the right upper quadrant area with intermittent nausea and vomiting for the last 3 weeks, worse in the last 2 days. Patient states that she was initially evaluated for the same in this ED and was diagnosed with cholelithiasis without cholecystitis and was given a referral to the general surgeon Dr. Sapp but is yet to follow-up with her as her ap pointment was rescheduled because of Covid-19 viral pandemic outbreak. Patient states that she is scheduled to see the general surgeon on 26 December 2019. Patient states that her pain got worse in the last 2 days and that she has hardly been able to keep anything down because of persistent nausea and vomiting and right upper quadrant and epigastric pain. In the ED, patient is alert and oriented x3 and is not in any distress. Patient was treated in the ED for pain, also given antacids and antiemetics and normal saline 1 L IV bolus. Lab test results were reviewed and showed elevated AST of 47, and acute leukocytosis of 12,900. The rest of the lab test results are unremarkable and nonactionable. On reevaluation, patient's pain resolved with medications as well as nausea and vomiting. The gallbladder ultrasound showed moderate cholelithiasis without definitive sonographic evidence for cholecystitis. The gallbladder wall is minimally thickened to a maximum of 4 mm, which is likely secondary to partial underdistention. Patient was discharged home on medications for pain and antiemetics as well as antacids and was advised to contact the general surgeon Dr. Sapp's office if it to be possible to see her earlier than originally rescheduled. Otherwise the patient was advised to stick to the already scheduled date and to honor the appointment. Patient was advised to return to the ED immediately if symptoms get worse. - Differential Diagnosis GERD; Cholelithiasis; Cholecystitis; UTI; Gastroenteritis; dehydration Critical care attestation.: If time is entered above; I have spent that time in minutes in the direct care of this critically ill patient, excluding procedure time. ED Disposition Clinical Impression: Nausea and vomiting in adult Abdominal pain Qualifiers: Abdominal location: right upper quadrant Qualified Code(s): R10.11 - Right upper quadrant pain Cholelithiasis Qualifiers: Cholelithiasis location: gallbladder Cholecystitis presence: without cholecystitis Biliary obstruction: without biliary obstruction Qualified Code(s): K80.20 - Calculus of gallbladder without cholecystitis without obstruction Disposition: - TO HOME OR SELFCARE Is pt being admited?: No Does the pt Need Aspirin: No Condition: Stable Instructions: Abdominal Pain (ED), Cholelithiasis (ED), Acute Nausea and Vomiting (ED) Additional Instructions: Take medication with food, drink plenty of fluids and follow-up with your primary care physician in 7 to 10 days for reevaluation. Return to the ED immediately if symptoms get worse. Consider following up with a general surgeon Dr. Zamora or Dr. Sapp as previously scheduled. Return to the ED immediately if symptoms get worse. Prescriptions: Dicyclomine [Bentyl] 20 mg PO Q6H PRN #30 tablet PRN Reason: Pain , Severe (7-10) Famotidine [Pepcid] 20 mg PO Q12H #60 tablet Promethazine [Phenergan] 25 mg PO Q6HR PRN #30 tab PRN Reason: Nausea Referrals: CRUZITO ZAMORA MD [Staff Physician] - 2-3 Days Time of Disposition: 22:44 Print Language: MACEDONIAN
[2019-12-14 23:42] VITALS: BP 115/67
== END 2019-12-14 23:41 | disposition home or self-care (01) ==
LOC: ED 18:22
DX: K80.20 Calculus of gallbladder without cholecystitis without obstruction (principal); R11.2 Nausea with vomiting, unspecified; R10.13 Epigastric pain; Z79.899 Other long term (current) drug therapy
CPT/HCPCS: 36415; 76705; 80053; 81001; 83690; 84703; 85025; 96374; 96375; 99283; J2270; J2405

== ENCOUNTER 2019-12-23 09:44 | Day surgery (SDC) | payer MEDICAID ==
[2019-12-23] MEDS ORDERED: LACTATED RINGERS 1,000 ML ONE (10:28)
[2019-12-23] MEDS ORDERED: ceFAZolin/Water 2 GM/20 ML 2 GM/20 ML SYRINGE IV NR (10:30)
--- NOTE | 2019-12-23 10:45 | Anesthesia Consultation ---
Anesthesia Consult and Med Hx Date of service: 12/23/19 - Airway Anesthetic Teeth Evaluation: Good ROM Head & Neck: Adequate Mental/Hyoid Distance: Adequate Mallampati Class: Class III Intubation Access Assessment: Possibly Difficult - Pre-Operative Health Status ASA Pre-Surgery Classification: ASA3 Proposed Anesthetic Plan: General - Pulmonary Hx Asthma: No - Cardiovascular System Hx Hypertension: No - Central Nervous System Hx Seizures: No Hx Psychiatric Problems: Yes - Gastrointestinal Hx Gastroesophageal Reflux Disease: Yes - Endocrine Hx Renal Disease: No Hx Liver Disease: Yes (gallbladder disease) Hx Hypothyroidism: No Hx Hyperthyroidism: No - Hematic Hx Anemia: Yes Hx Sickle Cell Disease: No - Other Systems Hx Alcohol Use: No Hx Substance Use: No Hx Cancer: No Hx Obesity: Yes (Morbid obesity, BMI 47.1) - Additional Comments Anesthesia Medical History Comments: Patient is 3 months , does not breastfeed. No previous GA
--- NOTE | 2019-12-23 10:45 | Anesthesia Day of Surgery ---
Anesthesia Day of Surgery - Day of Surgery Patient Examined: Yes Patient H&P Reviewed: Yes Patient is NPO: Yes
[2019-12-23] MEDS ORDERED: HYDROmorphone 1 MG/1 ML INJ ONE (10:52)
[2019-12-23] MEDS ORDERED: propofoL 200 MG/20 ML VIAL IV ONE (10:53)
[2019-12-23] MEDS ORDERED: SUCCINYLCHOLINE CHLORIDE 200 MG/10 ML INJ MDV ONE (10:55)
[2019-12-23] MEDS ORDERED: ROCURONIUM 50 MG/5 ML INJ IV ONE ×2 (10:55)
[2019-12-23] MEDS ORDERED: LIDOCAINE MPF (2%) 20 MG/1 ML VIAL 5 ML ONE (10:55)
[2019-12-23] MEDS ORDERED: MIDAZOLAM 2 MG/2 ML INJ IV NR (11:00)
[2019-12-23] MEDS ORDERED: FAMOTIDINE 20 MG/2 ML INJ IV NR (11:00)
[2019-12-23] MEDS ORDERED: LACTATED RINGERS 1,000 ML IV SCH (11:00)
[2019-12-23] MEDS ORDERED: BUPIVACAINE/PF (0.5%) 5 MG/1 ML 30 ML VIAL INFILTRATI ONE ×2 (11:40→12:38)
[2019-12-23] MEDS ORDERED: LIDOCAINE (1%) 10 MG/1 ML VIAL 20 ML MDV ONE (11:40)
[2019-12-23] MEDS ORDERED: ONDANSETRON 4 MG/2 ML INJ IV PRN (11:45)
[2019-12-23] MEDS ORDERED: MIDAZOLAM 2 MG/2 ML INJ ONE (11:46)
[2019-12-23] MEDS ORDERED: LIDOCAINE (1%) 10 MG/1 ML VIAL 20 ML MDV INFILTRATI ONE (12:39)
[2019-12-23] MEDS ORDERED: SODIUM CHLORIDE 0.9% IRR 1,500 ML BOTTLE IR ONE (12:39)
[2019-12-23] MEDS ORDERED: GLYCOPYRROLATE 0.4 MG/2 ML INJ ONE (12:59)
[2019-12-23] MEDS ORDERED: NEOSTIGMINE 10MG/10 ML INJ MDV ONE (12:59)
[2019-12-23] MEDS ORDERED: ONDANSETRON 4 MG/2 ML INJ ONE (12:59)
[2019-12-23] MEDS ORDERED: KETOROLAC 30 MG/1 ML INJ ONE (13:02)
--- NOTE | 2019-12-23 13:21 | Short Stay Summary ---
Short Stay Documentation Date of service: 12/23/19 - History Principal diagnosis: symptomatic cholelithiasis H&P: obtained from office - Allergies and Medications Current Medications: Allergies No Known Allergies Allergy (Verified 12/17/19 16:29) Home Medications Medication Instructions Recorded Confirmed Last Taken Type Ferrous Sulfate [Feosol 325 MG tab] 325 mg PO BID #60 tablet 09/18/19 12/17/19 Unknown Rx HYDROcodone/APAP 5-325 [[place] 1 each PO Q6HR PRN #20 tablet 09/18/19 12/17/19 Unknown Rx 5/325] Ibuprofen [Motrin] 800 mg PO Q8HR PRN #30 tablet 09/18/19 12/17/19 Unknown Rx Dicyclomine [Bentyl] 20 mg PO Q6H PRN #30 tablet 11/14/19 12/17/19 Unknown Rx Ondansetron [Zofran Odt] 4 mg PO Q6HR PRN #20 tab.rapdis 11/14/19 12/17/19 Unknown Rx Dicyclomine [Bentyl] 20 mg PO Q6H PRN #30 tablet 12/14/19 12/17/19 Unknown Rx Famotidine [Pepcid] 20 mg PO Q12H #60 tablet 12/14/19 12/17/19 Unknown Rx Promethazine [Phenergan] 25 mg PO Q6HR PRN #30 tab 12/14/19 12/17/19 Unknown Rx Active Medications Hydromorphone HCl (Dilaudid) 0.5 mg IV Q10MIN PRN PRN Reason: Pain , Severe (7-10) Cefazolin Sodium (Ancef/Sterile Water 2 Gm/20 Ml) 2 gm in 20 mls @ 80 mls/hr IV PREOP NR Stop: 12/23/19 14:00 Lactated Ringer's (Lactated Ringers) 1,000 mls @ 75 mls/hr IV DIRECT CHANDA Last Admin: 12/23/19 10:35 Dose: 75 mls/hr Documented by: Midazolam HCl (Versed) 2 mg IV PREOP NR Stop: 12/23/19 23:59 Ondansetron HCl (Zofran) 4 mg IV ONCE PRN PRN Reason: Nausea And Vomiting - Brief post op/procedure progress note Date of procedure: 12/23/19 Pre-op diagnosis: symptomatic cholelithiasis Post-op diagnosis: same Procedure: Laparoscopic cholecystectomy Anesthesia: GETA, local Findings: gallbladder with omental adhesions and small stones Surgeon: BINH YOU Stations Superintendent: BAYLEE WASHINGTON Estimated blood loss: minimal Pathology: list (gallbladder) Specimen disposition: to lab Condition: stable - Hospital course Hospital course: Pt observed in PACU and discharged to home in stable condition. - Disposition Condition at discharge: Good Disposition: [id number] TO HOME OR SELFCARE Short Stay Discharge Plan Activity: other (no heavy lifting) Diet: regular Wound: open to air Additional Instructions: See printed discharge instructions Follow up with: PRIMARY CARE,MD [Primary Care Provider] - 7 Days BINH YOU DO [Staff Physician] - 14 Days Prescriptions: HYDROcodone/APAP 5-325 [[place] 5-325 mg TAB] 1 each PO Q6HR PRN #10 tablet PRN Reason: Pain
[2019-12-23] MEDS: HYDROmorphone 1 MG/1 ML INJ IV PRN ×2 (13:37→13:47)
[2019-12-23] MEDS ORDERED: HYDROcodone/ACETAMINOPHEN 5-325 MG TAB PO PRN (13:43)
--- NOTE | 2019-12-23 14:15 | Operative Report ---
Operative Report Operative Report: Date of procedure: 12/23/19 Pre-op diagnosis: symptomatic cholelithiasis Post-op diagnosis: same Procedure: Laparoscopic cholecystectomy Anesthesia: GETA, local Findings: gallbladder with omental adhesions and small stones Surgeon: BINH YOU Ceramic Restorer: BAYLEE WASHINGTON Estimated blood loss: minimal Pathology: list (gallbladder) Specimen disposition: to lab Condition: stable - Hospital course Hospital course: Pt observed in PACU and discharged to home in stable condition. HPI an indication: 24-year-old female who presented to the surgery clinic as a referral from the emergency room for several episodes of symptomatic cholelithiasis. The patient was seen in the emergency room 3 separate times in the course of 1 month for recurrent right upper quadrant abdominal pain nausea and vomiting. Despite taking narcotic pain medication, multiple antiemetics, and modifying her diet, the patient continued to experience the above symptoms. She stated that at times she was even unable to drink water due to exacerbation of symptoms. As the patient failed medical management of her cholelithiasis, cholecystectomy was recommended. All risks benefits and alternatives to surgery were discussed which included a discussion regarding COVID-19. All questions were answered and consent obtained. Procedure in detail: The patient was identified in the preoperative area and taken back to the operating room, placed on the operating room table in supine position. After anesthesia was induced, the abdomen was prepped and draped in usual sterile fashion and timeout was performed. Local anesthetic was infiltrated into all of the skin incision sites. Using a 11 blade a supraumbilical incision was made and through this a Veress needle was used to insufflate the abdomen. The position of the veress needle was confirmed with the saline drop test and the abdomen was then insufflated to 15 mmHg. The veress needle was then removed and a 5 mm trocar placed using Optiview trocar. The air seal smoke evacuation system was used for insufflation. The abdomen was then inspected and there was no underlying injury to any of the abdominal contents. An additional 12 mm subxyphoid port, and 2, 5mm RUQ ports were then placed under direct visualization. The patient was then placed into reverse Trendelberg and tilted to the left. The gallbladder was visualized and was partially obscured by omental adhesions. The omental adhesions were dissected off of the gallbladder and liver bed using electrocautery and blunt dissection. Hemostasis was ensured. The gallbladder was grasped and retracted cephalad. The cystic duct and artery were then carefully dissected and the critical view obtained, and the cystic duct and artery were the only two structures seen entering the gallbladder. Three clips were then placed on the proximal aspect of the cystic duct and one clip distally, and 1 clips on the cystic artery proximally and one distal. The cystic duct was then transected in between the clips using EndoShears. The cystic artery was ligated using hook electrocautery. The gallbladder was dissected off the liver bed using hook electrocautery. The gallbladder was placed into a Endo Catch bag and placed in the right upper quadrant.The gallbladder fossa was then inspected and there was no identifiable bleeding or bile leakage. Hemostasis was ensured. The clips on the cystic duct and artery were visualized and intact. The patient was then placed into neutral position. The abdomen was then desufflated to 5 mmHg and all intra-abdominal smoke evacuated via the air seal smoke evacuation system in the usual fashion. The ports were then removed. The gallbladder was then removed via the 12 mm incision. The 12 mm port fascia was closed with in terrupted 0 Vicryl stitch. Skin incisions were closed with 4-0 Monocryl subcuticular stitches and skin glue. All skin incisions were once again infiltrated with local anesthetic. The gallbladder was inspected on the back table. There was only one cystic duct and one artery identified. There were gravel-like stones in the gallbladder. At the end case all sponge, instrument, sharp counts were correct 2. The patient was awoken from anesthesia, extubated, taken to PACU in stable condition.
[2019-12-23 14:16] VITALS: BP 125/86
--- NOTE | 2019-12-23 17:02 | Post Anesthesia Evaluation ---
- Post Anesthesia Evaluation Patient Participated: Yes Airway Patent: Yes Stable Respiratory Function: Yes Nausea/Vomiting: No Temp > 96.8F: Yes Pain Manageable: Yes Adequeate Hydration: Yes Anesthesia Complications: No Block Receding Appropriately: Not Applicable Patient on Ventilator: No
== END 2019-12-23 14:55 | disposition home or self-care (01) ==
LOC: OR 09:44
PROVIDERS: ATTEND Surgery
DX: K80.10 Calculus of gallbladder with chronic cholecystitis without obstruction (principal); E66.9 Obesity, unspecified; K21.9 Gastro-esophageal reflux disease without esophagitis; F32.9 Major depressive disorder, single episode, unspecified; D64.9 Anemia, unspecified; Z87.440 Personal history of urinary (tract) infections; Z79.899 Other long term (current) drug therapy; Z80.8 Family history of malignant neoplasm of other organs or systems; Z68.42 Body mass index [BMI] 45.0-49.9, adult; Z82.49 Family history of ischemic heart disease and other diseases of the circulatory system
CPT/HCPCS: 47562; 81025; 88304; J0330; J0690; J1170; J1885; J2250; J2405; J2704; J2710; J7120

== ENCOUNTER 2019-12-28 19:25 | Emergency (ER) | payer MEDICAID ==
[2019-12-28] MEDS ORDERED: MORPHINE 4 MG/1 ML INJ IV ONE (19:51)
[2019-12-28] MEDS ORDERED: PANTOPRAZOLE 40 MG INJ IV ONE (19:51)
[2019-12-28] MEDS ORDERED: ONDANSETRON 4 MG/2 ML INJ IV ONE (19:51)
[2019-12-28] MEDS ORDERED: SODIUM CHLORIDE 0.9% 1000 ML 1,000 ML IV ONE (19:51)
[2019-12-28 20:51] LABS: Bacteria,Urine 4+ /HPF (Negative); Bilirubin,Urine NEG (Negative); Blood,Urine NEG (Negative); Color,Urine Yellow (Yellow); Mucus,Urine FEW /HPF; Protein,Urine <15 mg/dL mg/dL (Negative)
[2019-12-28 20:54] LABS: Basophils % (Auto) 0.3 % (0.0-1.8); Eosinophils % (Auto) 0.4 % (0.0-4.3); Hematocrit 38.2 % (30.3-42.9); Hemoglobin 12.5 gm/dl (10.1-14.3); Lymphocytes # (Auto) 1.3 K/mm3 (1.2-5.4); Lymphocytes % (Auto) 11.1 % (13.4-35.0); Mean Corpuscular HGB Conc 33 % (30-34); Mean Corpuscular Volume 84 fl (79-97); Monocytes # (Auto) 0.5 K/mm3 (0.0-0.8); Monocytes % (Auto) 4.5 % (0.0-7.3); Platelet Count 314 K/mm3 (140-440); Red Blood Count 4.54 M/mm3 (3.65-5.03); Red Cell Distribution Width 13.3 % (13.2-15.2)
[2019-12-28 21:02] LABS: Alanine Aminotransferase 50 units/L (7-56); Albumin 4.1 g/dL (3.9-5); BUN/Creatinine Ratio 10; Blood Urea Nitrogen 6 mg/dL (7-17); Calcium 9.1 mg/dL (8.4-10.2); Hemolysis Index 5
[2019-12-28] MEDS ORDERED: METOCLOPRAMIDE 10 MG/2 ML INJ IV ONE (21:33)
--- NOTE | 2019-12-28 21:49 | Cat Scan Report ---
CT abdomen pelvis w con INDICATION / CLINICAL INFORMATION: MAIN: upper abd pain, n/v, constipation, recent cholecys 100CC [id number]. TECHNIQUE: All CT scans at this location are performed using CT dose reduction for ALARA by means of automated e xposure control. COMPARISON: None available. FINDINGS: No acute disease on limited lower thoracic images. ABDOMEN: Residual pneumoperitoneum following recent cholecystectomy. There are no abnormal right upper quadrant fluid collections. No focal hepatic abnormality. The spleen, pancreas, kidneys and adrenal glands are normal No small bowel dilatation. No retroperitoneal abnormalities. Pelvis: There are no dependent fluid collections or acute inflammatory changes seen in the pelvis. No osseous abnormality. IMPRESSION: 1. Expected postoperative changes following cholecystectomy. 2. No acute abnormality. Signer Name: Reagan Bowden MD Signed: 12/28/2019 9:45 PM Workstation Name: [id number]
--- NOTE | 2019-12-28 22:03 | Emergency Department Report ---
ED Abdominal Pain HPI - General Chief Complaint: Abdominal Pain Stated Complaint: GALLBLADDER SURGERY STOMACH PAIN Time Seen by Provider: 12/28/19 19:43 Source: patient Mode of arrival: Ambulatory Limitations: No Limitations - History of Present Illness Initial Comments: Patient is a 24-year-old female presents emergency room complaints of epigastric abdominal pain that began earlier today. She has associated nausea and vomiting. She states she had approximately 3 episodes of vomiting today. Patient had a cholecystectomy performed on by Dr. You. She states that she has not had a bowel movement since her surgery but is able to pass gas. She states that she has a burning sensation from her stomach to her chest. She denies any fever, diarrhea, hematemesis, hematochezia, melena. She has a past medical history of GERD. She denies any allergies to medications. She states her last menstrual cycle was 12/17/2019. Severity scale (0 -10): 0 - Related Data Previous Rx's Medication Instructions Recorded Last Taken Type Ferrous Sulfate [Feosol 325 MG tab] 325 mg PO BID #60 tablet 09/18/19 Unknown Rx Ibuprofen [Motrin 800 MG tab] 800 mg PO Q8HR PRN #30 tablet 09/18/19 Unknown Rx Dicyclomine [Bentyl] 20 mg PO Q6H PRN #30 tablet 11/14/19 Unknown Rx Ondansetron [Zofran ODT TAB] 4 mg PO Q6HR PRN #20 tab.rapdis 11/14/19 Unknown Rx Dicyclomine [Bentyl] 20 mg PO Q6H PRN #30 tablet 12/14/19 Unknown Rx Famotidine [Pepcid] 20 mg PO Q12H #60 tablet 12/14/19 Unknown Rx Promethazine [Phenergan] 25 mg PO Q6HR PRN #30 tab 12/14/19 Unknown Rx HYDROcodone/APAP 5-325 [[place] 1 each PO Q6HR PRN #10 tablet 12/23/19 Unknown Rx 5-325 mg TAB] Famotidine [Pepcid] 40 mg PO QHS #14 tablet 12/28/19 Unknown Rx Ondansetron HCl [Zofran] 4 mg PO Q8HR PRN #10 tablet 12/28/19 Unknown Rx traMADoL [Ultram 50 MG tab] 50 mg PO Q6HR PRN #7 tablet 12/28/19 Unknown Rx Allergies Allergy/AdvReac Type Severity Reaction Status Date / Time No Known Allergies Allergy Verified 12/17/19 16:29 ED Review of Systems ROS: Stated complaint: GALLBLADDER SURGERY STOMACH PAIN Other details as noted in HPI Comment: All other systems reviewed and negative ED Past Medical Hx - Past Medical History Previous Medical History?: Yes Hx Hypertension: No Hx Diabetes: No Hx Deep Vein Thrombosis: No Hx Liver Disease: Yes (gallbladder disease) Hx Renal Disease: No Hx Sickle Cell Disease: No Hx Seizures: No Hx Asthma: No Hx HIV: No - Surgical History Past Surgical History?: Yes Hx Cholecystectomy: Yes Additional Surgical History: Post op status 12/23 Gakkbladder removal via LAP - Social History Smoking Status: Never Smoker - Medications Home Medications: Home Medications Medication Instructions Recorded Confirmed Last Taken Type Ferrous Sulfate [Feosol 325 MG tab] 325 mg PO BID #60 tablet 09/18/19 12/17/19 Unknown Rx Ibuprofen [Motrin 800 MG tab] 800 mg PO Q8HR PRN #30 tablet 09/18/19 12/17/19 Unknown Rx Dicyclomine [Bentyl] 20 mg PO Q6H PRN #30 tablet 11/14/19 12/17/19 Unknown Rx Ondansetron [Zofran ODT TAB] 4 mg PO Q6HR PRN #20 tab.rapdis 11/14/19 12/17/19 Unknown Rx Dicyclomine [Bentyl] 20 mg PO Q6H PRN #30 tablet 12/14/19 12/17/19 Unknown Rx Famotidine [Pepcid] 20 mg PO Q12H #60 tablet 12/14/19 12/17/19 Unknown Rx Promethazine [Phenergan] 25 mg PO Q6HR PRN #30 tab 12/14/19 12/17/19 Unknown Rx HYDROcodone/APAP 5-325 [[place] 1 each PO Q6HR PRN #10 tablet 12/23/19 Unknown Rx 5-325 mg TAB] Famotidine [Pepcid] 40 mg PO QHS #14 tablet 12/28/19 Unknown Rx Ondansetron HCl [Zofran] 4 mg PO Q8HR PRN #10 tablet 12/28/19 Unknown Rx traMADoL [Ultram 50 MG tab] 50 mg PO Q6HR PRN #7 tablet 12/28/19 Unknown Rx ED Physical Exam - General Limitations: No Limitations General appearance: alert, in no apparent distress - Head Head exam: Present: atraumatic, normocephalic - Eye Eye exam: Present: normal appearance - ENT ENT exam: Present: mucous membranes moist - Respiratory Respiratory exam: Present: normal lung sounds bilaterally. Absent: respiratory distress, wheezes, rales, rhonchi, stridor, chest wall tenderness, accessory muscle use, decreased breath sounds, prolonged expiratory - Cardiovascular Cardiovascular Exam: Present: regular rate, normal rhythm, normal heart sounds. Absent: systolic murmur, diastolic murmur, rubs, gallop - GI/Abdominal GI/Abdominal exam: Present: soft, tenderness (epigastric), normal bowel sounds, other (surgical incisions on the abdomen are clean, dry, intact, without signs of infection). Absent: distended, guarding, rebound, rigid - Neurological Exam Neurological exam: Present: alert, oriented X3 - Psychiatric Psychiatric exam: Present: normal affect, normal mood - Skin Skin exam: Present: warm, dry, intact ED Course Vital Signs 12/28/19 12/28/19 12/28/19 19:31 20:08 20:38 Temperature 98.1 F Pulse Rate 85 Respiratory 18 19 16 Rate Blood Pressure 111/68 Blood Pressure [Left] O2 Sat by Pulse 97 Oximetry 12/28/19 23:09 Temperature 98.2 F Pulse Rate 81 Respiratory 16 Rate Blood Pressure Blood Pressure 121/73 [Left] O2 Sat by Pulse 100 Oximetry - Consultations Consultation #1: 12/28/19 22:[address] López, general surgery regarding patient history and results, recommended for patient to call the clinic tomorrow morning for follow-up, recommended outpatient follow-up, no further recommendations. ED Medical Decision Making - Lab Data Result diagrams: 12/28/19 20:28 12/28/19 20:28 Lab Results 12/28/19 12/28/19 12/28/19 Range/Units 20:00 20:28 20:28 WBC 11.3 H (4.5-11.0) K/mm3 RBC 4.54 (3.65-5.03) M/mm3 Hgb 12.5 (10.1-14.3) gm/dl Hct 38.2 (30.3-42.9) % MCV 84 (79-97) fl MCH 27 L (28-32) pg MCHC 33 (30-34) % RDW 13.3 (13.2-15.2) % Plt Count 314 (140-440) K/mm3 Lymph % (Auto) 11.1 L (13.4-35.0) % Wilkes % (Auto) 4.5 (0.0-7.3) % Eos % (Auto) 0.4 (0.0-4.3) % Baso % (Auto) 0.3 (0.0-1.8) % Lymph # 1.3 (1.2-5.4) K/mm3 Wilkes # 0.5 (0.0-0.8) K/mm3 Eos # 0.0 (0.0-0.4) K/mm3 Baso # 0.0 (0.0-0.1) K/mm3 Seg Neutrophils % 83.7 H (40.0-70.0) % Seg Neutrophils # 9.4 H (1.8-7.7) K/mm3 Sodium 141 (137-145) mmol/L Potassium 3.6 (3.6-5.0) mmol/L Chloride 104.1 (98-107) mmol/L Carbon Dioxide 24 (22-30) mmol/L Anion Gap 17 mmol/L BUN 6 L (7-17) mg/dL Creatinine 0.6 L (0.7-1.2) mg/dL Estimated GFR > 60 ml/min BUN/Creatinine Ratio 10 % Glucose 96 (65-100) mg/dL Calcium 9.1 (8.4-10.2) mg/dL Total Bilirubin 0.40 (0.1-1.2) mg/dL AST 111 H (5-40) units/L ALT 50 (7-56) units/L Alkaline Phosphatase 134 H (35-129) units/L Total Protein 7.3 (6.3-8.2) g/dL Albumin 4.1 (3.9-5) g/dL Albumin/Globulin Ratio 1.3 % Lipase 44 (13-60) units/L HCG, Qual (Negative) Urine Color Yellow (Yellow) Urine Turbidity Slightly-cloudy (Clear) Urine pH 7.0 (5.0-7.0) Ur Specific Gantt 1.018 (1.003-1.030) Urine Protein <15 mg/dl (Negative) mg/dL Urine Glucose (UA) Neg (Negative) mg/dL Urine Ketones Neg (Negative) mg/dL Urine Blood Neg (Negative) Urine Nitrite Neg (Negative) Urine Bilirubin Neg (Negative) Urine Urobilinogen 4.0 (<2.0) mg/dL Ur Leukocyte Esterase Mod (Negative) Urine WBC (Auto) 3.0 (0.0-6.0) /HPF Urine RBC (Auto) 4.0 (0.0-6.0) /HPF U Epithel Cells (Auto) 36.0 H (0-13.0) /HPF Urine Bacteria (Auto) 4+ (Negative) /HPF Urine Mucus Few /HPF 12/28/19 Range/Units 20:28 WBC (4.5-11.0) K/mm3 RBC (3.65-5.03) M/mm3 Hgb (10.1-14.3) gm/dl Hct (30.3-42.9) % MCV (79-97) fl MCH (28-32) pg MCHC (30-34) % RDW (13.2-15.2) % Plt Count (140-440) K/mm3 Lymph % (Auto) (13.4-35.0) % Wilkes % (Auto) (0.0-7.3) % Eos % (Auto) (0.0-4.3) % Baso % (Auto) (0.0-1.8) % Lymph # (1.2-5.4) K/mm3 Wilkes # (0.0-0.8) K/mm3 Eos # (0.0-0.4) K/mm3 Baso # (0.0-0.1) K/mm3 Seg Neutrophils % (40.0-70.0) % Seg Neutrophils # (1.8-7.7) K/mm3 Sodium (137-145) mmol/L Potassium (3.6-5.0) mmol/L Chloride (98-107) mmol/L Carbon Dioxide (22-30) mmol/L Anion Gap mmol/L BUN (7-17) mg/dL Creatinine (0.7-1.2) mg/dL Estimated GFR ml/min BUN/Creatinine Ratio % Glucose (65-100) mg/dL Calcium (8.4-10.2) mg/dL Total Bilirubin (0.1-1.2) mg/dL AST (5-40) units/L ALT (7-56) units/L Alkaline Phosphatase (35-129) units/L Total Protein (6.3-8.2) g/dL Albumin (3.9-5) g/dL Albumin/Globulin Ratio % Lipase (13-60) units/L HCG, Qual Negative (Negative) Urine Color (Yellow) Urine Turbidity (Clear) Urine pH (5.0-7.0) Ur Specific Gantt (1.003-1.030) Urine Protein (Negative) mg/dL Urine Glucose (UA) (Negative) mg/dL Urine Ketones (Negative) mg/dL Urine Blood (Negative) Urine Nitrite (Negative) Urine Bilirubin (Negative) Urine Urobilinogen (<2.0) mg/dL Ur Leukocyte Esterase (Negative) Urine WBC (Auto) (0.0-6.0) /HPF Urine RBC (Auto) (0.0-6.0) /HPF U Epithel Cells (Auto) (0-13.0) /HPF Urine Bacteria (Auto) (Negative) /HPF Urine Mucus /HPF - Radiology Data Radiology results: report reviewed CT abdomen pelvis w con INDICATION / CLINICAL INFORMATION: MAIN: upper abd pain, n/v, constipation, recent cholecys 100CC [id number]. TECHNIQUE: All CT scans at this location are performed using CT dose reduction for ALARA by means of automated exposure control. COMPARISON: None available. FINDINGS: No acute disease on limited lower thoracic images. ABDOMEN: Residual pneumoperitoneum following recent cholecystectomy. There are no abnormal right upper quadrant fluid collections. No focal hepatic abnormality. The spleen, pancreas, kidneys and adrenal glands are normal No small bowel dilatation. No retroperitoneal abnormalities. Pelvis: There are no dependent fluid collections or acute inflammatory changes seen in the pelvis. No osseous abnormality. IMPRESSION: 1. Expected postoperative changes following cholecystectomy. 2. No acute abnormality. Signer Name: Reagan Bowden MD Signed: 12/28/2019 9:45 PM Workstation Name: [id number] Transcribed By: MEENA Dictated By: Reagan Bowden MD Electronically Authenticated By: Reagan Bowden MD Signed Date/Time: 12/28/192144 DD/ 40 TD/TT: - Medical Decision Making Patient is a 24-year-old female presents emergency room complaints of epigastric abdominal pain that began earlier today. She has associated nausea and vomiting. She states she had approximately 3 episodes of vomiting today. Patient had a cholecystectomy performed on by Dr. You. She states that she has not had a bowel movement since her surgery but is able to pass gas. She states that she has a burning sensation from her stomach to her chest. She denies any fever, diarrhea, hematemesis, hematochezia, melena. She has a past medical history of GERD. She denies any allergies to medications. She s tates her last menstrual cycle was 12/17/2019. Vitals are normal. On exam: Patient has epigastric abdominal tenderness to palpation, no guarding, no rebound, no peritoneal signs, healing surgical incisions without signs of infection. Labs with very mild elevation of white blood cell count at 11.3, elevated AST at 111, elevated alk phos at 134, bilirubin and ALT are normal. CT abd pelvis: 1. Expected postoperative changes following cholecystectomy. 2. No acute abnormality. Patient given 1 L IV fluid, Zofran, morphine, protonix and pain resolved. Patient did have an episode of vomiting after receiving contrast in CT scanner, patient given Reglan. Patient was able to tolerate p.o. intake while in the ED and had no further episodes of nausea or vomiting.Spoke with Dr. López, general surgery regarding patient history and results, recommended for patient to call the clinic tomorrow morning for follow-up, recommended outpatient follow-up, no further recommendations. Patient given prescription for Pepcid, Ultram, Zofran. Advised patient Please take medication as prescribed. Increase your water intake over the next several days. Eat a bland diet. Please call Dr. Styles office tomorrow morning and discuss that you came to the ER and need close follow up. Return to emergency room for any new or worsening symptoms including but not limited to fever, worsening abdominal pain, unable to tolerate by mouth intake, unable to pass gas, etc. - Differential Diagnosis Post op infection, cholangitis, choledocholithiasis, post op pain, SBO Critical care attestation.: If time is entered above; I have spent that time in minutes in the direct care of this critically ill patient, excluding procedure time. ED Disposition Clinical Impression: Epigastric abdominal pain Nausea & vomiting Qualifiers: Vomiting type: unspecified Vomiting Intractability: non-intractable Qualified Code(s): R11.2 - Nausea with vomiting, unspecified Disposition: TO HOME OR SELFCARE Is pt being admited?: No Does the pt Need Aspirin: No Condition: Stable Instructions: Abdominal Pain (ED) Additional Instructions: Please take medication as prescribed. Increase your water intake over the next several days. Eat a bland diet. Please call Dr. Styles office tomorrow morning and discuss that you came to the ER and need close follow up. Return to emergency room for any new or worsening symptoms including but not limited to fever, worsening abdominal pain, unable to tolerate by mouth intake, unable to pass gas, etc. Prescriptions: Famotidine [Pepcid] 40 mg PO QHS #14 tablet traMADoL [Ultram 50 MG tab] 50 mg PO Q6HR PRN #7 tablet PRN Reason: Pain , Severe (7-10) Ondansetron HCl [Zofran] 4 mg PO Q8HR PRN #10 tablet PRN Reason: Nausea And Vomiting Referrals: BINH YOU DO [Staff Physician] - 2-3 Days Time of Disposition: 22:47 Print Language: HUNGARIAN
[2019-12-28 23:10] VITALS: BP 121/73
== END 2019-12-28 23:11 | disposition home or self-care (01) ==
LOC: ED 19:25
DX: R10.13 Epigastric pain (principal); R11.2 Nausea with vomiting, unspecified
CPT/HCPCS: 36415; 74177; 80053; 81001; 83690; 84703; 85025; 96361; 96374; 96375; 99284; C9113; J2270; J2405; J2765; J7030; Q9967

== ENCOUNTER 2020-01-07 09:01 | Outpatient (CLI) | payer MEDICAID ==
[2020-01-07 09:49] LABS: Alanine Aminotransferase 51 units/L (7-56); Albumin 4.2 g/dL (3.9-5); BUN/Creatinine Ratio 10; Bilirubin,Direct 0.2 mg/dL (0-0.2); Blood Urea Nitrogen 5 mg/dL (7-17); Calcium 9.8 mg/dL (8.4-10.2); Hemolysis Index 3
== END 2020-01-07 09:02 | disposition home or self-care (01) ==
LOC: LAB 09:01
PROVIDERS: ATTEND Surgery
DX: K81.1 Chronic cholecystitis (principal)
CPT/HCPCS: 36415; 80053; 82248

== ENCOUNTER 2021-03-17 10:03 | Inpatient (IN) | payer MEDICAID ==
[2021-03-17] MEDS ORDERED: ONDANSETRON 4 MG ODT TAB PO ONE (10:16)
[2021-03-17 13:59] LABS: Hematocrit 41.7 % (30.3-42.9); Mean Corpuscular HGB Conc 34 % (30-34); Mean Corpuscular Volume 80 fl (79-97); Platelet Count 213 K/mm3 (140-440); Red Cell Distribution Width 12.8 % (13.2-15.2)
[2021-03-17 14:12] LABS: Alanine Aminotransferase 23 units/L (7-56); Albumin 4.2 g/dL (3.9-5); Blood Urea Nitrogen 6 mg/dL (7-17); Calcium 8.8 mg/dL (8.4-10.2); Hemolysis Index 2
[2021-03-17 14:41] LABS: BUN/Creatinine Ratio 10
[2021-03-17] MEDS ORDERED: predniSONE 20 MG TAB PO ONE (14:53)
[2021-03-17] MEDS ORDERED: IBUPROFEN 400 MG TAB PO ONE (14:53)
[2021-03-17] MEDS ORDERED: ACETAMINOPHEN 500 MG TAB PO ONE (14:53)
--- NOTE | 2021-03-17 14:53 | Emergency Department Report ---
ED General Adult HPI - General Chief complaint: Weakness Stated complaint: DIFF BREATHING PUI?: Yes Time Seen by Provider: 03/17/21 14:40 Source: patient, RN notes reviewed Mode of arrival: Ambulatory Limitations: Physical Limitation - History of Present Illness Initial comments: The patient was evaluated in the emergency department for symptoms described in the history of present illness. He/she was evaluated in the context of the global COVID-19 pandemic, which necessitated consideration that the patient might be at risk for infection with the virus that causes COVID-19. Institutional protocols and algorithms that pertain to the evaluation of patients at risk for COVID-19 are in a state of rapid change based on info rmation released by regulatory bodies including the CDC and federal and state organizations. These policies and algorithms were followed during the patient's care in the emergency department. Please note that these policies, procedures and recommendations changed on a rapid basis. During the history and physical examination, I had a complete personal protective equipment. The patient is a 26-year-old female. She is not known to myself previously. She states that she is not . She has a past medical history of lap jyoti, body mass index of 110, cholecystectomy. The patient presents to the ER with a complaint of headache, loss of taste and smell, nausea, shortness of breath, body aches, malaise and fatigue. Today is day 6 of symptoms. The patient has not received her Covid vaccination. The patient does not know if she has been exposed to individuals with Covid. Her symptoms are constant. They worsen with physical exertion. They decreased with rest. -: Gradual, days(s) Location: head, back, abdomen, left, right, upper extremity, lower extremity Quality: aching Consistency: constant Improves with: rest Worsens with: movement - Related Data Previous Rx's Medication Instructions Recorded Last Taken Type Ferrous Sulfate [Feosol 325 MG tab] 325 mg PO BID #60 tablet 09/18/19 12/27/19 Rx HYDROcodone/APAP 5-325 [[place] 1 each PO Q6HR PRN #10 tablet 12/23/19 12/27/19 Rx 5-325 mg TAB] traMADoL [Ultram 50 MG tab] 50 mg PO Q6HR PRN #7 tablet 12/28/19 12/27/19 Rx Dicyclomine [Bentyl] 20 mg PO Q6H PRN #30 tablet 12/31/19 Unknown Rx Famotidine [Pepcid] 20 mg PO Q12H #60 tablet 12/31/19 Unknown Rx Ondansetron [Zofran ODT TAB] 4 mg PO Q6HR PRN #20 tab.rapdis 12/31/19 Unknown Rx Allergies Allergy/AdvReac Type Severity Reaction Status Date / Time No Known Allergies Allergy Verified 12/17/19 16:29 ED Review of Systems ROS: Stated complaint: DIFF BREATHING Other details as noted in HPI Constitutional: fever, malaise, weakness, other (Positive loss of taste and smell) ENT: congestion Respiratory: cough, shortness of breath, SOB with exertion, SOB at rest Cardiovascular: chest pain (Chest wall pain with cough) Gastrointestinal: abdominal pain, nausea, vomiting, diarrhea Musculoskeletal: back pain, arthralgia, myalgia Neurological: headache, weakness ED Past Medical Hx - Past Medical History Previous Medical History?: Yes Hx Hypertension: No Hx Diabetes: No Hx Deep Vein Thrombosis: No Hx Liver Disease: Yes (choledocholithiasis, s/p lap. jyoti 12/23/19) Hx Renal Disease: No Hx Sickle Cell Disease: No Hx Seizures: No Hx Asthma: No Hx HIV: No - Surgical History Past Surgical History?: Yes Hx Cholecystectomy: Yes Additional Surgical History: Post op status 12/23 Gakkbladder removal via LAP - Social History Smoking Status: Never Smoker Substance Use Type: None - Medications Home Medications: Home Medications Medication Instructions Recorded Confirmed Last Taken Type Ferrous Sulfate [Feosol 325 MG tab] 325 mg PO BID #60 tablet 09/18/19 03/18/21 12/27/19 Rx HYDROcodone/APAP 5-325 [[place] 1 each PO Q6HR PRN #10 tablet 12/23/19 03/18/21 12/27/19 Rx 5-325 mg TAB] traMADoL [Ultram 50 MG tab] 50 mg PO Q6HR PRN #7 tablet 12/28/19 03/18/21 12/27/19 Rx Dicyclomine [Bentyl] 20 mg PO Q6H PRN #30 tablet 12/31/19 03/18/21 Unknown Rx Famotidine [Pepcid] 20 mg PO Q12H #60 tablet 12/31/19 03/18/21 Unknown Rx Ondansetron [Zofran ODT TAB] 4 mg PO Q6HR PRN #20 tab.rapdis 12/31/19 03/18/21 U nknown Rx ED Physical Exam - General Limitations: Physical Limitation General appearance: alert, anxious, in distress, obese - Head Head exam: Present: atraumatic, normocephalic - Eye Eye exam: Present: normal appearance, EOMI. Absent: nystagmus - ENT ENT exam: Present: normal exam, normal orophraynx, mucous membranes moist, normal external ear exam - Neck Neck exam: Present: normal inspection, full ROM. Absent: tenderness, meningismus - Respiratory Respiratory exam: Present: respiratory distress, accessory muscle use, other (Pulmonary auscultation not performed secondary to lack of disposable stethosc ope). Absent: stridor - Cardiovascular Cardiovascular Exam: Present: normal rhythm, tachycardia, other (Tachycardia, normal sinus rhythm seen on equipment monitor phototypesetting. Cardiac auscultation not performed secondary to lack of disposable stethoscope.) - GI/Abdominal GI/Abdominal exam: Present: soft. Absent: distended, tenderness, guarding, rebound, rigid, pulsatile mass - Extremities Exam Extremities exam: Present: normal inspection, full ROM, other (2+ pulses noted in the bilateral upper and lower extremities. There is no palpable cord. negative Homans sign. Muscular compartments are soft. The pelvis is stable.). Absent: pedal edema, calf tenderness - Back Exam Back exam: Present: normal inspection. Absent: tenderness, CVA tenderness (R), CVA tenderness (L), paraspinal tenderness, vertebral tenderness - Neurological Exam Neurological exam: Present: alert, normal gait, other (No facial droop. Tongue midline. Extraocular movements intact bilaterally. Facial sensation intact to light touch in V1, V2, V3 distribution bilaterally. 5 and a 5 strength in 4 extremities. Sensation intact to light touch in 4 extremities.). Absent: motor sensory deficit - Psychiatric Psychiatric exam: Present: anxious - Skin Skin exam: Present: warm, dry, intact, normal color. Absent: rash ED Course Vital Signs 03/17/21 03/17/21 03/17/21 10:13 14:16 14:30 Temperature 99.6 F Pulse Rate 127 H Respiratory 20 Rate Blood Pressure 99/57 Blood Pressure [Right] O2 Sat by Pulse 92 96 94 Oximetry O2 Sat by Pulse Oximetry [ Digit-Finger] 03/17/21 03/17/21 03/17/21 14:46 15:00 15:16 Temperature Pulse Rate Respiratory Rate Blood Pressure Blood Pressure [Right] O2 Sat by Pulse 95 94 91 Oximetry O2 Sat by Pulse Oximetry [ Digit-Finger] 03/17/21 03/17/21 03/17/21 15:30 15:46 16:00 Temperature Pulse Rate Respiratory Rate Blood Pressure Blood Pressure [Right] O2 Sat by Pulse 94 92 93 Oximetry O2 Sat by Pulse Oximetry [ Digit-Finger] 03/17/21 03/17/21 03/17/21 16:16 16:30 16:34 Temperature Pulse Rate Respiratory Rate Blood Pressure 108/66 Blood Pressure [Right] O2 Sat by Pulse 95 93 Oximetry O2 Sat by Pulse 87 Oximetry [ Digit-Finger] 03/17/21 03/17/21 03/17/21 16:42 16:46 17:00 Temperature 101.0 F H Pulse Rate Respiratory Rate Blood Pressure 108/66 108/66 Blood Pressure [Right] O2 Sat by Pulse 95 95 Oximetry O2 Sat by Pulse Oximetry [ Digit-Finger] 03/17/21 03/17/21 03/17/21 17:16 17:30 17:46 Temperature Pulse Rate Respiratory Rate Blood Pressure 108/66 108/66 108/66 Blood Pressure [Right] O2 Sat by Pulse 94 95 95 Oximetry O2 Sat by Pulse Oximetry [ Digit-Finger] 03/17/21 03/17/21 03/17/21 18:00 18:16 18:30 Temperature 99.1 F Pulse Rate Respiratory Rate Blood Pressure 108/66 108/66 108/66 Blood Pressure [Right] O2 Sat by Pulse 92 94 94 Oximetry O2 Sat by Pulse Oximetry [ Digit-Finger] 03/17/21 03/17/21 03/17/21 18:46 18:54 19:00 Temperature Pulse Rate Respiratory Rate Blood Pressure 108/66 120/74 120/74 Blood Pressure 99/69 [Right] O2 Sat by Pulse 95 94 95 Oximetry O2 Sat by Pulse Oximetry [ Digit-Finger] 03/17/21 03/17/21 03/17/21 19:10 19:20 19:30 Temperature Pulse Rate Respiratory Rate Blood Pressure 120/74 120/74 120/74 Blood Pressure [Right] O2 Sat by Pulse 96 91 96 Oximetry O2 Sat by Pulse Oximetry [ Digit-Finger] 03/17/21 03/17/21 03/17/21 19:40 19:50 20:00 Temperature Pulse Rate Respiratory Rate Blood Pressure 120/74 120/74 120/74 Blood Pressure [Right] O2 Sat by Pulse 95 96 96 Oximetry O2 Sat by Pulse Oximetry [ Digit-Finger] 03/17/21 03/17/21 03/17/21 20:10 20:20 20:30 Temperature Pulse Rate Respiratory Rate Blood Pressure 120/74 120/74 120/74 Blood Pressure [Right] O2 Sat by Pulse 96 92 93 Oximetry O2 Sat by Pulse Oximetry [ Digit-Finger] 03/17/21 03/17/21 03/17/21 20:40 20:50 21:00 Temperature Pulse Rate Respiratory Rate Blood Pressure 120/74 120/74 119/66 Blood Pressure [Right] O2 Sat by Pulse 92 93 93 Oximetry O2 Sat by Pulse Oximetry [ Digit-Finger] 03/17/21 03/17/21 03/17/21 21:10 21:20 21:30 Temperature Pulse Rate Respiratory Rate Blood Pressure 119/66 119/66 113/64 Blood Pressure [Right] O2 Sat by Pulse 93 93 93 Oximetry O2 Sat by Pulse Oximetry [ Digit-Finger] 03/17/21 03/17/21 03/17/21 21:40 21:50 22:00 Temperature Pulse Rate Respiratory Rate Blood Pressure 113/64 113/64 107/63 Blood Pressure [Right] O2 Sat by Pulse 94 93 94 Oximetry O2 Sat by Pulse Oximetry [ Digit-Finger] 03/17/21 03/17/21 03/17/21 22:10 22:20 22:30 Temperature Pulse Rate Respiratory Rate Blood Pressure 107/63 107/63 107/63 Blood Pressure [Right] O2 Sat by Pulse 93 93 92 Oximetry O2 Sat by Pulse Oximetry [ Digit-Finger] 03/17/21 03/17/21 03/17/21 22:40 22:50 23:00 Temperature Pulse Rate Respiratory Rate Blood Pressure 119/66 119/66 112/58 Blood Pressure [Right] O2 Sat by Pulse 91 92 91 Oximetry O2 Sat by Pulse Oximetry [ Digit-Finger] 03/17/21 03/17/21 03/17/21 23:10 23:20 23:30 Temperature Pulse Rate Respiratory Rate Blood Pressure 107/63 107/63 107/63 Blood Pressure [Right] O2 Sat by Pulse 93 92 92 Oximetry O2 Sat by Pulse Oximetry [ Digit-Finger] 03/17/21 03/17/21 03/18/21 23:40 23:50 00:00 Temperature Pulse Rate Respiratory Rate Blood Pressure 107/63 107/63 121/66 Blood Pressure [Right] O2 Sat by Pulse 92 92 93 Oximetry O2 Sat by Pulse Oximetry [ Digit-Finger] 03/18/21 03/18/21 03/18/21 00:10 00:20 00:30 Temperature Pulse Rate Respiratory Rate Blood Pressure 121/66 121/66 121/66 Blood Pressure [Right] O2 Sat by Pulse 93 93 93 Oximetry O2 Sat by Pulse Oximetry [ Digit-Finger] 03/18/21 03/18/21 03/18/21 00:40 00:50 01:00 Temperature Pulse Rate Respiratory Rate Blood Pressure 121/66 121/66 125/76 Blood Pressure [Right] O2 Sat by Pulse 93 90 91 Oximetry O2 Sat by Pulse Oximetry [ Digit-Finger] 03/18/21 03/18/21 03/18/21 01:10 01:20 01:30 Temperature Pulse Rate Respiratory Rate Blood Pressure 125/76 125/76 125/76 Blood Pressure [Right] O2 Sat by Pulse 92 93 93 Oximetry O2 Sat by Pulse Oximetry [ Digit-Finger] 03/18/21 03/18/21 03/18/21 01:40 01:50 02:00 Temperature Pulse Rate Respiratory Rate Blood Pressure 125/76 125/76 126/87 Blood Pressure [Right] O2 Sat by Pulse 93 92 91 Oximetry O2 Sat by Pulse Oximetry [ Digit-Finger] 03/18/21 02:40 Temperature 97.9 F Pulse Rate 85 Respiratory 20 Rate Blood Pressure 146/100 Blood Pressure [Right] O2 Sat by Pulse 90 Oximetry O2 Sat by Pulse Oximetry [ Digit-Finger] - Reevaluation(s) Reevaluation #1: 03/17/21 15:39 Differential diagnosis, including but not limited to: COVID-19, hypoxic respiratory failure Assessment and plan: 26-year-old female, with probable COVID-19 symptoms. The patient has a low-grade temperature, and is tachycardic, and hypoxic. The patient did not receive her COVID-19 vaccination. With ambulation, the patient desaturated to 87%. At rest, she is now saturating 87 to 91%. She meets cr iteria for admission and hospitalization secondary to hypoxic respiratory failure, secondary to suspicion for COVID-19. Start IV fluids, Tylenol, ibuprofen, steroids, and supplemental oxygen. Draw laboratory studies to risk stratify patient for cytokine storm. Have discussed this plan of care with the patient for admission. She has articulated understanding. She is amenable to this plan of care. Hospital team will be paged to arrange admission. EKG, x-ray of the chest pending. Care will be signed out to the oncoming ER physician to follow-up on EKG, and x- ray the chest 03/17/21 15:48 Dr Bashir to admit to [facility] - Pulse Oximetry Interpretation Digit-Finger Initial Pulse Oximetry Readin O2 Sat by Pulse Oximetry: 87 Actions Taken: other (placed on NC to 2 l) ED Medical Decision Making - Lab Data Result diagrams: 03/19/21 07:20 03/19/21 07:20 Vital Signs 03/17/21 10:13 Temperature 99.6 F Pulse Rate 127 H Respiratory 20 Rate Blood Pressure 99/57 O2 Sat by Pulse 92 Oximetry Lab Results 03/17/21 03/17/21 03/17/21 Range/Units 13:09 13:09 13:09 WBC 5.3 (4.5-11.0) K/mm3 RBC 5.20 H (3.65-5.03) M/mm3 Hgb 14.0 (10.1-14.3) gm/dl Hct 41.7 (30.3-42.9) % MCV 80 (79-97) fl MCH 27 L (28-32) pg MCHC 34 (30-34) % RDW 12.8 L (13.2-15.2) % Plt Count 213 (140-440) K/mm3 Baso % (Auto) Head Of Stock Add Manual Diff Complete Total Counted 100 Seg Neuts % (Manual) 80.0 H (40.0-70.0) % Band Neutrophils % 4.0 % Lymphocytes % (Manual) 12.0 L (13.4-35.0) % Monocytes % (Manual) 4.0 (0.0-7.3) % Nucleated RBC % Not Reportable Seg Neutrophils # Man 4.2 (1.8-7.7) K/mm3 Band Neutrophils # 0.2 K/mm3 Lymphocytes # (Manual) 0.6 L (1.2-5.4) K/mm3 Abs React Lymphs (Man) 0.0 K/mm3 Monocytes # (Manual) 0.2 (0.0-0.8) K/mm3 Eosinophils # (Manual) 0.0 (0.0-0.4) K/mm3 Basophils # (Manual) 0.0 (0.0-0.1) K/mm3 Metamyelocytes # 0.0 K/mm3 Myelocytes # 0.0 K/mm3 Promyelocytes # 0.0 K/mm3 Blast Cells # 0.0 K/mm3 WBC Morphology Not Reportable Hypersegmented Neuts Not Reportable Hyposegmented Neuts Not Reportable Hypogranular Neuts Not Reportable Smudge Cells Not Reportable Toxic Granulation Not Reportable Toxic Vacuolation Not Reportable Dohle Bodies Not Reportable Pelger-Huet Anomaly Not Reportable Quang Rods Not Reportable Platelet Estimate Consistent w auto Clumped Platelets Not Reportable Plt Clumps, EDTA Not Reportable Large Platelets Not Reportable Giant Platelets Not Reportable Platelet Satelliting Not Reportable Plt Morphology Comment Not Reportable RBC Morphology Not Reportable Dimorphic RBCs Not Reportable Polychromasia Not Reportable Hypochromasia Not Reportable Poikilocytosis Not Reportable Anisocytosis Not Reportable Microcytosis Not Reportable Macrocytosis Not Reportable Spherocytes Not Reportable Pappenheimer Bodies Not Reportable Sickle Cells Not Reportable Target Cells Not Reportable Tear Drop Cells Not Reportable Ovalocytes Not Reportable Helmet Cells Not Reportable [place] Bodies Not Reportable [place] Rings Not Reportable [place] Cells Not Reportable Bite Cells Not Reportable Crenated Cell Not Reportable Elliptocytes Not Reportable Acanthocytes (Spur) Not Reportable Rouleaux Not Reportable Hemoglobin C Crystals Not Reportable Schistocytes Not Reportable Malaria parasites Not Reportable Ilan Bodies Not Reportable Hem Pathologist Commnt No Sodium 141 (137-145) mmol/L Potassium 4.0 (3.6-5.0) mmol/L Chloride 102.1 (98-107) mmol/L Carbon Dioxide 28 (22-30) mmol/L Anion Gap 15 mmol/L BUN 6 L (7-17) mg/dL Creatinine 0.6 (0.6-1.2) mg/dL Estimated GFR > 60 ml/min BUN/Creatinine Ratio 10 % Glucose 90 (65-100) mg/dL Lactic Acid 1.10 (0.7-2.0) mmol/L Calcium 8.8 (8.4-10.2) mg/dL Total Bilirubin 0.30 (0.1-1.2) mg/dL AST 35 (5-40) units/L ALT 23 (7-56) units/L Alkaline Phosphatase 77 (35-129) units/L Total Protein 6.7 (6.3-8.2) g/dL Albumin 4.2 (3.9-5) g/dL Albumin/Globulin Ratio 1.7 % - EKG Data -: EKG Interpreted by Me EKG shows normal: sinus rhythm Rate: tachycardia - EKG Data 03/17/21 16:34 EKG interpreted at 16: 10 Sinus rhythm, tachycardia, normal P wave axis. QTC prolonged, borderline high left ventricular voltage. Abnormal EKG. Not a STEMI. No prior for comparison. - Radiology Data Radiology results: pending, report reviewed, image reviewed [facility] [address] [place] [address] XRay Report Signed Patient: VEENA GOMEZ MR#: [id number] : 1995 Acct:[id number] Age/Sex: 26 / F ADM Date: 03/17/21 Loc: 3A [id number]: MICHEL BASHIR MD Ordering Physician: NILAY MAGALLANES MD Date of Service: 03/17/21 Procedure(s): XR chest 1V ap Accession Number(s): [id number] cc: NILAY MAGALLANES MD Fluoro Time In Minutes: Chest single view INDICATION: Dyspnea IMPRESSION: Extensive bilateral lower lobe airspace pneumonia. Signer Na me: Reid Reilly MD Signed: 03/17/2021 6:09 PM Workstation Name: [id number] Transcribed By: Dictated By: Reid Reilly MD Electronically Authenticated By: Reid Reilly MD Signed Date/Time: 03/17/211808 DD/ 08 TD/TT: Critical Care Time: Yes Critical care time in (mins) excluding proc time.: 35 Critical care attestation.: If time is entered above; I have spent that time in minutes in the direct care of this critically ill patient, excluding procedure time. ED Disposition Clinical Impression: Acute respiratory failure with hypoxia, Suspected 2019 novel coronavirus infection Disposition: OP ADMIT IP TO THIS HOSP Is pt being admited?: Yes Does the pt Need Aspirin: No Condition: Fair
[2021-03-17] MEDS ORDERED: dexAMETHasone 4 MG/ML VIAL IV ONE (15:21)
[2021-03-17] MEDS ORDERED: LACTATED RINGERS 500 ML IV ONE (15:21)
[2021-03-17] MEDS ORDERED: METOCLOPRAMIDE 10 MG/2 ML INJ IV ONE (15:24)
[2021-03-17 15:27] LABS: Band Neutrophils # (Manual) 0.2 K/mm3; Total Cells Counted 100
[2021-03-17 15:28] LABS: Platelet Estimate Consistent w Auto
[2021-03-17 16:27] LABS: C-Reactive Protein 1.9 mg/dL (0.00-1.30)
[2021-03-17 17:30] LABS: HCG,Quantitative < 2 mIU/mL (0-4)
--- NOTE | 2021-03-17 18:14 | XRay Report ---
Chest single view INDICATION: Dyspnea IMPRESSION: Extensive bilateral lower lobe airspace pneumonia. Signer Name: Reid Reilly MD Signed: 03/17/2021 6:09 PM Workstation Name: [id number]
[2021-03-18] MEDS ORDERED: ACETAMINOPHEN 325 MG TAB PO PRN ×2 (00:32→00:34)
[2021-03-18] MEDS ORDERED: oxyCODONE /ACETAMINOPHEN 5-325MG TAB PO PRN (00:33)
[2021-03-18] MEDS ORDERED: HYDROmorphone 1 MG/1 ML INJ IV PRN (00:34)
[2021-03-18] MEDS ORDERED: METOCLOPRAMIDE 10 MG/2 ML INJ IV PRN (00:34)
[2021-03-18] MEDS ORDERED: ONDANSETRON 4 MG/2 ML INJ IV PRN (00:34)
--- NOTE | 2021-03-18 08:13 | History and Physical Report ---
History of Present Illness Date of examination: 03/17/21 Date of admission: 03/17/21 15:48 Chief complaint: Shortness of breath for 1 day History of present illness: 26-year-old female presents to the emergency room with generalized weakness and shortness of breath for several days. Patient also has headache, loss of taste and smell, nausea. Also body aches malaise and fatigue. Patient has not received Covid vaccination. Patient is not sure whether she was exposed to Covid patient. No significant past medical history except for GERD and anemia. Patient also has generalized weakness. - Past Medical History Previous Medical History?: Yes --(choledocholithiasis, s/p lap. jyoti 12/23/19) - Surgical History Past Surgical History?: Yes --Cholecystectomy: Yes --Additional Surgical History: Post op status 12/23 Gakkbladder removal via LAP - Social History Smoking Status: Never Smoker Substance Use Type: None Family history Htn - Medications Home Medications: Home Medications Medication Instructions Recorded Confirmed Last Taken Type Ferrous Sulfate [Feosol 325 MG tab] 325 mg PO BID #60 tablet 09/18/19 12/30/19 12/27/19 Rx HYDROcodone/APAP 5-325 [[place] 1 each PO Q6HR PRN #10 tablet 12/23/19 12/30/19 12/27/19 Rx 5-325 mg TAB] traMADoL [Ultram 50 MG tab] 50 mg PO Q6HR PRN #7 tablet 12/28/19 12/30/19 12/27/19 Rx Dicyclomine [Bentyl] 20 mg PO Q6H PRN #30 tablet 12/31/19 Unknown Rx Famotidine [Pepcid] 20 mg PO Q12H #60 tablet 12/31/19 Unknown Rx Ondansetron [Zofran ODT TAB] 4 mg PO Q6HR PRN #20 tab.rapdis 12/31/19 Unknown Rx Review of Systems ROS: Constitutional low-grade fever, muscle aches, loss of taste and smell HEENT no sore throat no post nasal drip no diplopia Neck no neck stiffness no lymph gland enlargement Chest and lungs shortness of breath and cough present. CVS no chest pain no diaphoresis no palpitations GI no nausea no vomiting no diarrhea Genitourinary system no dysuria no flank pain Musculoskeletal system no muscle pains no joint pains [employer] no syncope no seizures Skin no rash no itching Psychiatric no depression no homicidal or suicidal tendencies Hematologic no lymphedema or bruising Endocrine no polydipsia no polyuria no cold intolerance no heat intolerance Medications and Allergies Allergies Allergy/AdvReac Type Severity Reaction Status Date / Time No Known Allergies Allergy Verified 12/17/19 16:29 Home Medications Medication Instructions Recorded Confirmed Last Taken Type Ferrous Sulfate [Feosol 325 MG tab] 325 mg PO BID #60 tablet 09/18/19 03/18/21 12/27/19 Rx HYDROcodone/APAP 5-325 [[place] 1 each PO Q6HR PRN #10 tablet 12/23/19 03/18/21 12/27/19 Rx 5-325 mg TAB] traMADoL [Ultram 50 MG tab] 50 mg PO Q6HR PRN #7 tablet 12/28/19 03/18/21 12/27/19 Rx Dicyclomine [Bentyl] 20 mg PO Q6H PRN #30 tablet 12/31/19 03/18/21 Unknown Rx Famotidine [Pepcid] 20 mg PO Q12H #60 tablet 12/31/19 03/18/21 Unknown Rx Ondansetron [Zofran ODT TAB] 4 mg PO Q6HR PRN #20 tab.rapdis 12/31/19 03/18/21 Unknown Rx Active Meds: Active Medications Acetaminophen (Acetaminophen 325 Mg Tab) 650 mg PO Q4H PRN PRN Reason: Pain MILD(1-3)/Fever >100.5/KAUFMAN Enoxaparin Sodium (Enoxaparin 40 Mg/0.4 Ml Inj) 40 mg SUB-Q QDAY CHANDA Famotidine (Famotidine 20 Mg Tab) 20 mg PO BID CHANDA Hydromorphone HCl (Hydromorphone 1 Mg/1 Ml Inj) 0.5 mg IV Q3H PRN PRN Reason: Pain , Severe (7-10) Metoclopramide HCl (Metoclopramide 10 Mg/2 Ml Inj) 10 mg IV Q6H PRN PRN Reason: Nausea And Vomiting Ondansetron HCl (Ondansetron 4 Mg/2 Ml Inj) 4 mg IV Q8H PRN PRN Reason: Nausea And Vomiting Oxycodone/Acetaminophen (Oxycodone /Acetaminophen 5-325mg Tab) 1 tab PO Q4H PRN PRN Reason: Pain, Moderate (4-6) Sodium Chloride (Sodium Chloride 0.9% 10 Ml Flush Syringe) 10 ml IV BID CHANDA Sodium Chloride (Sodium Chloride 0.9% 10 Ml Flush Syringe) 10 ml IV PRN PRN PRN Reason: LINE FLUSH Exam - Constitutional Vitals: Temp Pulse Resp BP Pulse Ox 97.9 F 85 20 146/100 90 03/18/21 02:40 03/18/21 02:40 03/18/21 02:40 03/18/21 02:40 03/18/21 02:40 General appearance: Present: mild distress, well-nourished - EENT Eyes: Present: PERRL ENT: hearing intact, clear oral mucosa - Neck Neck: Present: supple, normal ROM - Respiratory Respiratory effort: normal Respiratory: bilateral: CTA, rhonchi (Scattered) - Cardiovascular Heart rate: 98 Rhythm: regular Heart Sounds: Present: S1 & S2. Absent: rub, click - Extremities Extremities: no ischemia, pulses intact, pulses symmetrical, No edema Peripheral Pulses: within normal limits - Abdominal General gastrointestinal: Present: soft, non-tender, non-distended, normal bowel sounds Female genitourinary: Present: normal - Integumentary Integumentary: Present: clear, warm, dry - Musculoskeletal Musculoskeletal: gait normal, strength equal bilaterally - Psychiatric Psychiatric: appropriate mood/affect, intact judgment & insight - Neurologic Neurologic: CNII-XII intact, moves all extremities Results - Labs CBC & Chem 7: 03/17/21 13:09 03/17/21 13:09 Labs: Laboratory Last Values WBC 5.3 K/mm3 (4.5-11.0) 03/17/21 13:09 RBC 5.20 M/mm3 (3.65-5.03) H 03/17/21 13:09 Hgb 14.0 gm/dl (10.1-14.3) 03/17/21 13:09 Hct 41.7 % (30.3-42.9) 03/17/21 13:09 MCV 80 fl (79-97) 03/17/21 13:09 MCH 27 pg (28-32) L 03/17/21 13:09 MCHC 34 % (30-34) 03/17/21 13:09 RDW 12.8 % (13.2-15.2) L 03/17/21 13:09 Plt Count 213 K/mm3 (140-440) 03/17/21 13:09 Baso % (Auto) Microbiology Laboratory Manager 03/17/21 13:09 Add Manual Diff Complete 03/17/21 13:09 Total Counted 100 03/17/21 13:09 Seg Neuts % (Manual) 80.0 % (40.0-70.0) H 03/17/21 13:09 Band Neutrophils % 4.0 % 03/17/21 13:09 Lymphocytes % (Manual) 12.0 % (13.4-35.0) L 03/17/21 13:09 Monocytes % (Manual) 4.0 % (0.0-7.3) 03/17/21 13:09 Nucleated RBC % Not Reportable 03/17/21 13:09 Seg Neutrophils # Man 4.2 K/mm3 (1.8-7.7) 03/17/21 13:09 Band Neutrophils # 0.2 K/mm3 03/17/21 13:09 Lymphocytes # (Manual) 0.6 K/mm3 (1.2-5.4) L 03/17/21 13:09 Abs React Lymphs (Man) 0.0 K/mm3 03/17/21 13:09 Monocytes # (Manual) 0.2 K/mm3 (0.0-0.8) 03/17/21 13:09 Eosinophils # (Manual) 0.0 K/mm3 (0.0-0.4) 03/17/21 13:09 Basophils # (Manual) 0.0 K/mm3 (0.0-0.1) 03/17/21 13:09 Metamyelocytes # 0.0 K/mm3 03/17/21 13:09 Myelocytes # 0.0 K/mm3 03/17/21 13:09 Promyelocytes # 0.0 K/mm3 03/17/21 13:09 Blast Cells # 0.0 K/mm3 03/17/21 13:09 WBC Morphology Not Reportable 03/17/21 13:09 Hypersegmented Neuts Not Reportable 03/17/21 13:09 Hyposegmented Neuts Not Reportable 03/17/21 13:09 Hypogranular Neuts Not Reportable 03/17/21 13:09 Smudge Cells Not Reportable 03/17/21 13:09 Toxic Granulation Not Reportable 03/17/21 13:09 Toxic Vacuolation Not Reportable 03/17/21 13:09 Dohle Bodies Not Reportable 03/17/21 13:09 Pelger-Huet Anomaly Not Reportable 03/17/21 13:09 Quang Rods Not Reportable 03/17/21 13:09 Platelet Estimate Consistent w auto 03/17/21 13:09 Clumped Platelets Not Reportable 03/17/21 13:09 Plt Clumps, EDTA Not Reportable 03/17/21 13:09 Large Platelets Not Reportable 03/17/21 13:09 Giant Platelets Not Reportable 03/17/21 13:09 Platelet Satelliting Not Reportable 03/17/21 13:09 Plt Morphology Comment Not Reportable 03/17/21 13:09 RBC Morphology Not Reportable 03/17/21 13:09 Dimorphic RBCs Not Reportable 03/17/21 13:09 Polychromasia Not Reportable 03/17/21 13:09 Hypochromasia Not Reportable 03/17/21 13:09 Poikilocytosis Not Reportable 03/17/21 13:09 Anisocytosis Not Reportable 03/17/21 13:09 Microcytosis Not Reportable 03/17/21 13:09 Macrocytosis Not Reportable 03/17/21 13:09 Spherocytes Not Reportable 03/17/21 13:09 Pappenheimer Bodies Not Reportable 03/17/21 13:09 Sickle Cells Not Reportable 03/17/21 13:09 Target Cells Not Reportable 03/17/21 13:09 Tear Drop Cells Not Reportable 03/17/21 13:09 Ovalocytes Not Reportable 03/17/21 13:09 Helmet Cells Not Reportable 03/17/21 13:09 [place] Bodies Not Reportable 03/17/21 13:09 [place] Rings Not Reportable 03/17/21 13:09 Kathy Cells Not Reportable 03/17/21 13:09 Bite Cells Not Reportable 03/17/21 13:09 Crenated Cell Not Reportable 03/17/21 13:09 Elliptocytes Not Reportable 03/17/21 13:09 Acanthocytes (Spur) Not Reportable 03/17/21 13:09 Rouleaux Not Reportable 03/17/21 13:09 Hemoglobin C Crystals Not Reportable 03/17/21 13:09 Schistocytes Not Reportable 03/17/21 13:09 Malaria parasites Not Reportable 03/17/21 13:09 Ilan Bodies Not Reportable 03/17/21 13:09 Hem Pathologist Commnt No 03/17/21 13:09 D-Dimer 472.87 ng/mlDDU (0-234) H 03/17/21 15:43 Sodium 141 mmol/L (137-145) 03/17/21 13:09 Potassium 4.0 mmol/L (3.6-5.0) 03/17/21 13:09 Chloride 102.1 mmol/L (98-107) 03/17/21 13:09 Carbon Dioxide 28 mmol/L (22-30) 03/17/21 13:09 Anion Gap 15 mmol/L 03/17/21 13:09 BUN 6 mg/dL (7-17) L 03/17/21 13:09 Creatinine 0.6 mg/dL (0.6-1.2) 03/17/21 13:09 Estimated GFR > 60 ml/min 03/17/21 13:09 BUN/Creatinine Ratio 10 % 03/17/21 13:09 Glucose 90 mg/dL (65-100) 03/17/21 13:09 Lactic Acid 1.00 mmol/L (0.7-2.0) 03/17/21 15:43 Calcium 8.8 mg/dL (8.4-10.2) 03/17/21 13:09 Magnesium 2.30 mg/dL (1.7-2.3) 03/17/21 15:43 Total Bilirubin 0.30 mg/dL (0.1-1.2) 03/17/21 13:09 AST 35 units/L (5-40) 03/17/21 13:09 ALT 23 units/L (7-56) 03/17/21 13:09 Alkaline Phosphatase 77 units/L (35-129) 03/17/21 13:09 Lactate Dehydrogenase 292 units/L (91-180) H 03/17/21 15:43 Total Creatine Kinase 241 units/L (30-135) H 03/17/21 15:43 C-Reactive Protein 1.90 mg/dL (0.00-1.30) H 03/17/21 15:43 Total Protein 6.7 g/dL (6.3-8.2) 03/17/21 13:09 Albumin 4.2 g/dL (3.9-5) 03/17/21 13:09 Albumin/Globulin Ratio 1.7 % 03/17/21 13:09 HCG, Quant < 2 mIU/mL (0-4) 03/17/21 15:43 Short CBC 03/17/21 Range/Units 13:09 WBC 5.3 (4.5-11.0) K/mm3 Hgb 14.0 (10.1-14.3) gm/dl Hct 41.7 (30.3-42.9) % Plt Count 213 (140-440) K/mm3 BMP 03/17/21 13:09 Sodium 141 Potassium 4.0 Chloride 102.1 Carbon Dioxide 28 BUN 6 L Creatinine 0.6 Glucose 90 Calcium 8.8 Cardiac Enzymes 03/17/21 Range/Units 15:43 Total Creatine Kinase 241 H (30-135) units/L Liver Function 03/17/21 Range/Units 13:09 Total Bilirubin 0.30 (0.1-1.2) mg/dL AST 35 (5-40) units/L ALT 23 (7-56) units/L Alkaline Phosphatase 77 (35-129) units/L Albumin 4.2 (3.9-5) g/dL Microbiology: Microbiology 03/17/21 15:53 Peripheral/Venous Blood Culture - Preliminary Culture in Progress 03/17/21 15:43 Peripheral/Venous Blood Culture - Preliminary Culture in Progress - Imaging and Cardiology Chest x-ray: report reviewed Imaging and Cardiology: Chest x-ray Extensive bilateral lower lobe airspace pneumonia Milligan/IV: Voiding Method Toilet Assessment and Plan Advance Directives: Yes (Full code) VTE prophylaxis?: Chemical Plan of care discussed with patient/family: Yes - Patient Problems (1) Acute respiratory failure with hypoxia Current Visit: Yes Status: Acute Plan to address problem: Patient on nasal cannula oxygen Titrate to keep the O2 sats above 92 High flow nasal cannula oxygen if necessary BiPAP if necessary (2) SIRS (systemic inflammatory response syndrome) Current Visit: Yes Status: Acute Plan to address problem: Patient with any increased inflammatory markers-especially C-reactive protein and LDH Patient also tachycardic and hypoxic (3) Bilateral pneumonia Current Visit: Yes Status: Acute Qualifiers: Lung location: lower lobe of lung Plan to address problem: Patient initiated on Zithromax and IV Rocephin (4) Suspected 2019 novel coronavirus infection Current Visit: Yes Status: Acute Plan to address problem: Check coronavirus PCR Patient initiated on IV Decadron 8 mg every 24 hours Patient also initiated on zinc sulfate vitamin C and vitamin D (5) DVT prophylaxis Current Visit: No Status: Acute Plan to address problem: On Lovenox and GI prophylaxis
[2021-03-18] MEDS: ASCORBIC ACID 500 MG TAB PO SCH ×2 (10:04→21:50)
[2021-03-18] MEDS: FAMOTIDINE 20 MG TAB PO SCH ×2 (10:04→21:51)
[2021-03-18] MEDS: cefTRIAXone/NS 2 GM/100 ML 2 GM/100 ML BAG IV SCH (10:04)
[2021-03-18] MEDS: ENOXAPARIN 40 MG/0.4 ML INJ SUB-Q SCH (10:04)
[2021-03-18] MEDS: ZINC SULFATE 220 MG CAP PO SCH ×2 (10:04→21:50)
[2021-03-18] MEDS: CHOLECALCIFEROL (VIT D3) 5,000 UNIT TAB PO SCH (10:05)
[2021-03-18] MEDS: dexAMETHasone 4 MG/ML VIAL IV SCH (10:05)
--- NOTE | 2021-03-18 10:17 | Electrocardiograph Report ---
[facility] Test Date: 2021-03-17 Test Time: 16:10:29 Pat Name: VEENA GOMEZ Department: Room: A367 1 Gender: F Stone Paver: SERVICE WRITER : 1995 Requested By: NILAY MAGALLANES Order Number: [id number] Reading MD: Truman Sinclair Measurements Intervals [place] Rate: 114 P: 36 DE: 140 QRS: -2 QRSD: 76 T: -32 QT: 329 QTc: 454 Interpretive Statements Sinus tachycardia Borderline T abnormalities, diffuse leads No previous ECG available for comparison Electronically Signed On 03-18-2021 10:17:11 EDT by Truman Sinclair
[2021-03-18] MEDS: AZITHROMYCIN/NS 500 MG/250 ML 500 MG/250 ML BAG IV SCH (10:57)
[2021-03-18] MEDS: ONDANSETRON 4 MG/2 ML INJ IV PRN (12:29)
--- NOTE | 2021-03-18 16:52 | Vascular Lab Report ---
. DUPLEX DOPPLER LOWER EXTREMITY VEINS, BILATERAL INDICATION / CLINICAL INFORMATION: Suspected Covid, elevated D-dimer, rule out DVT. TECHNIQUE: Duplex doppler imaging was performed through the veins of both lower extremities using venous jay bonita and other maneuvers. COMPARISON: None available. FINDINGS: RIGHT COMMON FEMORAL VEIN: Negative. RIGHT FEMORAL VEIN: Negative. RIGHT POPLITEAL VEIN: Negative. RIGHT CALF VEINS: Negative. LEFT COMMON FEMORAL VEIN: Negative. LEFT FEMORAL VEIN: Negative. LEFT POPLITEAL VEIN: Negative. LEFT CALF VEINS: Negative. ADDITIONAL FINDINGS: None. IMPRESSION: 1. No sonographic evidence for DVT in either lower extremity. Signer Name: Riki Copeland MD Signed: 03/18/2021 4:47 PM Workstation Name: [id number]
--- NOTE | 2021-03-18 17:17 | Progress Note ---
Assessment and Plan Assessment and plan: 26-year-old female presents to the emergency room with generalized weakness and shortness of breath for several days. Patient also has headache, loss of taste and smell, nausea. Also body aches malaise and fatigue. Patient has not received Covid vaccination. Patient is not sure whether she was exposed to Covid patient. No significant past medical history except for GERD and anemia. Patient also has generalized weakness. (1) Acute respiratory failure with hypoxia Current Visit: Yes Status: Acute Plan to address problem: O2 sats dropped to 87% with ambulation in ED, placed on nasal cannula oxygen Titrate to keep the O2 sats above 92, current on room air and at rest. High flow nasal cannula oxygen if necessary BiPAP if necessary (2) SIRS (systemic inflammatory response syndrome) Current Visit: Yes Status: Acute Plan to address problem: Patient with any increased inflammatory markers-especially C-reactive protein and LDH Patient also tachycardic and hypoxic (3) Bilateral pneumonia on CT and cxr Current Visit: Yes Status: Acute Qualifiers: Lung location: lower lobe of lung Plan to address problem: Patient initiated on Zithromax and IV Rocephin (4) Suspected 2019 novel coronavirus infection Current Visit: Yes Status: Acute Plan to address problem: Check coronavirus PCR, report pending Patient initiated on IV Decadron 8 mg every 24 hours Patient also initiated on zinc sulfate vitamin C and vitamin D (5) elevated D-dimer CTA negative for PE and us negative for DVT DVT prophylaxis Current Visit: No Status: Acute Plan to address problem: On Lovenox and GI prophylaxis d/w pt and RN History Interval history: Patient reports breathing better. Currently on room air. O2 sats dropping to 87% with walking in ED. she has lot of cough, T-max of 101, symptoms improving, covid test still pending Hospitalist Physical - Constitutional Vitals: Temp Pulse Resp BP Pulse Ox 98.5 F 108 H 22 125/85 96 03/18/21 12:03 03/18/21 12:03 03/18/21 12:03 03/18/21 12:03 03/18/21 12:03 General appearance: Present: mild distress, well-nourished, other (morbidly obese) - EENT Eyes: Absent: scleral icterus, conjunctival injection ENT: clear oral mucosa - Neck Neck: Present: supple, other (No JVD) - Respiratory Respiratory effort: normal Respiratory: bilateral: diminished - Cardiovascular Rhythm: regular - Extremities Extremities: No edema - Abdominal General gastrointestinal: soft, non-tender - Integumentary Integumentary: Absent: rash - Psychiatric Psychiatric: appropriate mood/affect - Neurologic Neurologic: no focal deficits Results - Labs CBC & Chem 7: 03/17/21 13:09 03/17/21 13:09 Labs: Laboratory Last Values WBC 5.3 K/mm3 (4.5-11.0) 03/17/21 13:09 RBC 5.20 M/mm3 (3.65-5.03) H 03/17/21 13:09 Hgb 14.0 gm/dl (10.1-14.3) 03/17/21 13:09 Hct 41.7 % (30.3-42.9) 03/17/21 13:09 MCV 80 fl (79-97) 03/17/21 13:09 MCH 27 pg (28-32) L 03/17/21 13:09 MCHC 34 % (30-34) 03/17/21 13:09 RDW 12.8 % (13.2-15.2) L 03/17/21 13:09 Plt Count 213 K/mm3 (140-440) 03/17/21 13:09 Baso % (Auto) [employer] Teacher 03/17/21 13:09 Add Manual Diff Complete 03/17/21 13:09 Total Counted 100 03/17/21 13:09 Seg Neuts % (Manual) 80.0 % (40.0-70.0) H 03/17/21 13:09 Band Neutrophils % 4.0 % 03/17/21 13:09 Lymphocytes % (Manual) 12.0 % (13.4-35.0) L 03/17/21 13:09 Monocytes % (Manual) 4.0 % (0.0-7.3) 03/17/21 13:09 Nucleated RBC % Not Reportable 03/17/21 13:09 Seg Neutrophils # Man 4.2 K/mm3 (1.8-7.7) 03/17/21 13:09 Band Neutrophils # 0.2 K/mm3 03/17/21 13:09 Lymphocytes # (Manual) 0.6 K/mm3 (1.2-5.4) L 03/17/21 13:09 Abs React Lymphs (Man) 0.0 K/mm3 03/17/21 13:09 Monocytes # (Manual) 0.2 K/mm3 (0.0-0.8) 03/17/21 13:09 Eosinophils # (Manual) 0.0 K/mm3 (0.0-0.4) 03/17/21 13:09 Basophils # (Manual) 0.0 K/mm3 (0.0-0.1) 03/17/21 13:09 Metamyelocytes # 0.0 K/mm3 03/17/21 13:09 Myelocytes # 0.0 K/mm3 03/17/21 13:09 Promyelocytes # 0.0 K/mm3 03/17/21 13:09 Blast Cells # 0.0 K/mm3 03/17/21 13:09 WBC Morphology Not Reportable 03/17/21 13:09 Hypersegmented Neuts Not Reportable 03/17/21 13:09 Hyposegmented Neuts Not Reportable 03/17/21 13:09 Hypogranular Neuts Not Reportable 03/17/21 13:09 Smudge Cells Not Reportable 03/17/21 13:09 Toxic Granulation Not Reportable 03/17/21 13:09 Toxic Vacuolation Not Reportable 03/17/21 13:09 Dohle Bodies Not Reportable 03/17/21 13:09 Pelger-Huet Anomaly Not Reportable 03/17/21 13:09 Quang Rods Not Reportable 03/17/21 13:09 Platelet Estimate Consistent w auto 03/17/21 13:09 Clumped Platelets Not Reportable 03/17/21 13:09 Plt Clumps, EDTA Not Reportable 03/17/21 13:09 Large Platelets Not Reportable 03/17/21 13:09 Giant Platelets Not Reportable 03/17/21 13:09 Platelet Satelliting Not Reportable 03/17/21 13:09 Plt Morphology Comment Not Reportable 03/17/21 13:09 RBC Morphology Not Reportable 03/17/21 13:09 Dimorphic RBCs Not Reportable 03/17/21 13:09 Polychromasia Not Reportable 03/17/21 13:09 Hypochromasia Not Reportable 03/17/21 13:09 Poikilocytosis Not Reportable 03/17/21 13:09 Anisocytosis Not Reportable 03/17/21 13:09 Microcytosis Not Reportable 03/17/21 13:09 Macrocytosis Not Reportable 03/17/21 13:09 Spherocytes Not Reportable 03/17/21 13:09 Pappenheimer Bodies Not Reportable 03/17/21 13:09 Sickle Cells Not Reportable 03/17/21 13:09 Target Cells Not Reportable 03/17/21 13:09 Tear Drop Cells Not Reportable 03/17/21 13:09 Ovalocytes Not Reportable 03/17/21 13:09 Helmet Cells Not Reportable 03/17/21 13:09 [place] Bodies Not Reportable 03/17/21 13:09 [place] Rings Not Reportable 03/17/21 13:09 [place] Cells Not Reportable 03/17/21 13:09 Bite Cells Not Reportable 03/17/21 13:09 Crenated Cell Not Reportable 03/17/21 13:09 Elliptocytes Not Reportable 03/17/21 13:09 Acanthocytes (Spur) Not Reportable 03/17/21 13:09 Rouleaux Not Reportable 03/17/21 13:09 Hemoglobin C Crystals Not Reportable 03/17/21 13:09 Schistocytes Not Reportable 03/17/21 13:09 Malaria parasites Not Reportable 03/17/21 13:09 Ilan Bodies Not Reportable 03/17/21 13:09 Hem Pathologist Commnt No 03/17/21 13:09 D-Dimer 472.87 ng/mlDDU (0-234) H 03/17/21 15:43 Sodium 141 mmol/L (137-145) 03/17/21 13:09 Potassium 4.0 mmol/L (3.6-5.0) 03/17/21 13:09 Chloride 102.1 mmol/L (98-107) 03/17/21 13:09 Carbon Dioxide 28 mmol/L (22-30) 03/17/21 13:09 Anion Gap 15 mmol/L 03/17/21 13:09 BUN 6 mg/dL (7-17) L 03/17/21 13:09 Creatinine 0.6 mg/dL (0.6-1.2) 03/17/21 13:09 Estimated GFR > 60 ml/min 03/17/21 13:09 BUN/Creatinine Ratio 10 % 03/17/21 13:09 Glucose 90 mg/dL (65-100) 03/17/21 13:09 Lactic Acid 1.00 mmol/L (0.7-2.0) 03/17/21 15:43 Calcium 8.8 mg/dL (8.4-10.2) 03/17/21 13:09 Magnesium 2.30 mg/dL (1.7-2.3) 03/17/21 15:43 Total Bilirubin 0.30 mg/dL (0.1-1.2) 03/17/21 13:09 AST 35 units/L (5-40) 03/17/21 13:09 ALT 23 units/L (7-56) 03/17/21 13:09 Alkaline Phosphatase 77 units/L (35-129) 03/17/21 13:09 Lactate Dehydrogenase 292 units/L (91-180) H 03/17/21 15:43 Total Creatine Kinase 241 units/L (30-135) H 03/17/21 15:43 C-Reactive Protein 1.90 mg/dL (0.00-1.30) H 03/17/21 15:43 Total Protein 6.7 g/dL (6.3-8.2) 03/17/21 13:09 Albumin 4.2 g/dL (3.9-5) 03/17/21 13:09 Albumin/Globulin Ratio 1.7 % 03/17/21 13:09 Procalcitonin < 0.05 ng/mL (<0.15) 03/17/21 15:43 HCG, Quant < 2 mIU/mL (0-4) 03/17/21 15:43 Coronavirus (PCR) (Negative) 03/17/21 Unknown Microbiology: Microbiology 03/17/21 15:53 Peripheral/Venous Blood Culture - Preliminary Culture in Progress 03/17/21 15:43 Peripheral/Venous Blood Culture - Preliminary Culture in Progress Milligan/IV: Voiding Method Toilet Active Medications - Current Medications Current Medications: Generic Name Dose Route Start Last Admin Trade Name Freq PRN Reason Stop Dose Admin Acetaminophen 650 mg 03/18/21 00:32 Acetaminophen 325 Mg Tab PO Q4H PRN Pain MILD(1-3)/Fever >100.5/KAUFMAN Ascorbic Acid 1,000 mg 03/18/21 10:00 03/18/21 10:04 Ascorbic Acid 500 Mg Tab PO 1,000 mg BID CHANDA Administration Cholecalciferol 5,000 unit 03/18/21 10:00 03/18/21 10:05 Cholecalciferol (Vit D3) 5,000 Unit Tab PO 5,000 unit DAILY CHANDA Administration Dexamethasone 8 mg 03/18/21 10:00 03/18/21 10:05 Dexamethasone 4 Mg/Ml Vial IV 03/26/21 10:01 8 mg Q24HR CHANDA Administration Enoxaparin Sodium 40 mg 03/18/21 10:00 03/18/21 10:04 Enoxaparin 40 Mg/0.4 Ml Inj SUB-Q 40 mg QDAY CHANDA Administration Famotidine 20 mg 03/18/21 10:00 03/18/21 10:04 Famotidine 20 Mg Tab PO 20 mg BID CHANDA Administration Hydromorphone HCl 0.5 mg 03/18/21 00:34 Hydromorphone 1 Mg/1 Ml Inj IV Q3H PRN Pain , Severe (7-10) Azithromycin 500 mg in 250 mls @ 250 mls/hr 03/18/21 10:00 03/18/21 10:57 Zithromax/Ns IV 03/22/21 10:59 250 mls/hr Q24HR CHANDA Administration Ceftriaxone Sodium 2 gm in 100 mls @ 200 mls/hr 03/18/21 10:00 03/18/21 10:04 Rocephin/Ns 2 Gm/100 Ml IV 03/23/21 09:59 200 mls/hr Q24HR CHANDA Administration Protocol Metoclopramide HCl 10 mg 03/18/21 00:34 Metoclopramide 10 Mg/2 Ml Inj IV Q6H PRN Nausea And Vomiting Ondansetron HCl 4 mg 03/18/21 00:32 03/18/21 12:29 Ondansetron 4 Mg/2 Ml Inj IV 4 mg Q8H PRN Administration Nausea And Vomiting Oxycodone/Acetaminophen 1 tab 03/18/21 00:33 Oxycodone /Acetaminophen 5-325mg Tab PO Q4H PRN Pain, Moderate (4-6) Sodium Chloride 10 ml 03/18/21 10:00 03/18/21 10:05 Sodium Chloride 0.9% 10 Ml Flush Syringe IV 10 ml BID CHANDA Administration Sodium Chloride 10 ml 03/18/21 00:32 Sodium Chloride 0.9% 10 Ml Flush Syringe IV PRN PRN LINE FLUSH Zinc Sulfate 220 mg 03/18/21 10:00 03/18/21 10:04 Zinc Sulfate 220 Mg Cap PO 220 mg BID CHANDA Administration
--- NOTE | 2021-03-18 17:55 | Cat Scan Report ---
CTA CHEST WITH CONTRAST INDICATION / CLINICAL INFORMATION: Suspected COVID, dyspnea and elevated D-dimer; rule out PE. TECHNIQUE: Axial CT images were obtained through the chest after injection of 100 cc Omnipaque 350 IV contrast. 3 plane MIP and/or 3D reconstructions were produced. All CT scans at this location are per formed using CT dose reduction for ALARA by means of automated exposure control. COMPARISON: None available. FINDINGS: PULMONARY ARTERIES: Adequate opacification bilaterally without intraluminal filling defect to suggest acute PTE. The main pulmonary artery measures up to 3.7 cm transverse and is larger than the ascendi ng thoracic aorta. THORACIC AORTA: No significant abnormality. HEART: There is mild cardiomegaly. CORONARY ARTERY CALCIFICATION: None. MEDIASTINUM / SERA: No significant abnormality. PLEURA: No pleural effusion. No pneumothorax. LUNGS: There is moderate patchy groundglass parenchymal disease and consolidation in both lower lobes . ADDITIONAL FINDINGS: The right hemidiaphragm is mildly elevated. UPPER ABDOMEN: The gallbladder is surgically absent. The visualized upper abdomen is otherwise unrema rkable. SKELETAL STRUCTURES: No significant osseous abnormality. IMPRESSION: 1. No CT evidence for pulmonary embolism. 2. Bibasilar parenchymal opacities are probably inflammatory. Pneumonia and aspiration should be cons idered. 3. Mild cardiomegaly. Possible pulmonary arterial hypertension. Signer Name: Carlin Workman MD Signed: 03/18/2021 5:51 PM Workstation Name: [id number]
[2021-03-19 08:53] LABS: Alanine Aminotransferase 21 units/L (7-56); Albumin 3.6 g/dL (3.9-5); Blood Urea Nitrogen 7 mg/dL (7-17); Calcium 8.5 mg/dL (8.4-10.2); Hemolysis Index 2
[2021-03-19 09:02] LABS: BUN/Creatinine Ratio 14
[2021-03-19 09:23] LABS: Basophils % (Auto) 0.2 % (0.0-1.8); Hematocrit 39.5 % (30.3-42.9); Hemoglobin 13.3 gm/dl (10.1-14.3); Lymphocytes # (Auto) 1.8 K/mm3 (1.2-5.4); Lymphocytes % (Auto) 32.1 % (13.4-35.0); Mean Corpuscular HGB Conc 34 % (30-34); Mean Corpuscular Volume 81 fl (79-97); Monocytes # (Auto) 0.4 K/mm3 (0.0-0.8); Monocytes % (Auto) 7.6 % (0.0-7.3); Platelet Count 250 K/mm3 (140-440); Red Blood Count 4.88 M/mm3 (3.65-5.03); Red Cell Distribution Width 13.1 % (13.2-15.2)
[2021-03-19] MEDS: dexAMETHasone 4 MG/ML VIAL IV SCH (11:09)
[2021-03-19] MEDS: ZINC SULFATE 220 MG CAP PO SCH ×2 (11:09→22:25)
[2021-03-19] MEDS: ASCORBIC ACID 500 MG TAB PO SCH ×2 (11:09→22:25)
[2021-03-19] MEDS: CHOLECALCIFEROL (VIT D3) 5,000 UNIT TAB PO SCH (11:10)
[2021-03-19] MEDS: ENOXAPARIN 40 MG/0.4 ML INJ SUB-Q SCH (11:10)
[2021-03-19] MEDS: AZITHROMYCIN/NS 500 MG/250 ML 500 MG/250 ML BAG IV SCH (11:11)
[2021-03-19] MEDS: cefTRIAXone/NS 2 GM/100 ML 2 GM/100 ML BAG IV SCH (11:11)
[2021-03-19] MEDS: FAMOTIDINE 20 MG TAB PO SCH ×2 (11:40→22:25)
--- NOTE | 2021-03-19 17:38 | Progress Note ---
Assessment and Plan Assessment and plan: 26-year-old female presents to the emergency room with generalized weakness and shortness of breath for several days. Patient also has headache, loss of taste and smell, nausea. Also body aches malaise and fatigue. Patient has not received Covid vaccination. Patient is not sure whether she was exposed to Covid patient. No significant past medical history except for GERD and anemia. Patient also has generalized weakness. (1) Acute respiratory failure with hypoxia Current Visit: Yes Status: Acute Plan to address problem: O2 sats dropped to 87% with ambulation in ED, placed on nasal cannula oxygen Titrate to keep the O2 sats above 92, current on room air and at rest. High flow nasal cannula oxygen if necessary BiPAP if necessary (2) SIRS (systemic inflammatory response syndrome), low-grade fever Current Visit: Yes Status: Acute Plan to address problem: Patient tachycardic and hypoxic Fever seems to be resolving, vital signs stable at rest currently. (3) Bilateral pneumonia on CT and cxr Current Visit: Yes Status: Acute Qualifiers: Lung location: lower lobe of lung Plan to address problem: Patient initiated on Zithromax and IV Rocephin (4) 2019 novel coronavirus infection Current Visit: Yes Status: Acute Plan to address problem: Tested positive for coronavirus by PCR Patient initiated on IV Decadron 8 mg every 24 hours Patient also initiated on zinc sulfate vitamin C and vitamin D (5) elevated D-dimer CTA negative for PE and us negative for DVT DVT prophylaxis Current Visit: No Status: Acute Plan to address problem: On Lovenox and GI prophylaxis d/w pt and RN History Interval history: Patient reports breathing better. Remains on room air with a normal sats at rest. O2 sats dropped to 87% with walking in ED. she has lot of cough, T-max of 101,.. Resolving since on Decadron, appetite improving, COVID-19 test positive by PCR. Hospitalist Physical - Constitutional Vitals: Temp Pulse Resp BP Pulse Ox 97.5 F L 76 18 97/61 93 03/19/21 11:54 03/19/21 11:54 03/19/21 11:54 03/19/21 11:54 03/19/21 11:54 General appearance: Present: no acute distress, well-nourished, other (morbidly obese) - EENT Eyes: Present: PERRL, EOM intact - Neck Neck: Present: supple - Respiratory Respiratory effort: normal Respiratory: bilateral: diminished - Cardiovascular Rhythm: regular - Extremities Extremities: No edema - Abdominal General gastrointestinal: soft, non-tender, normal bowel sounds - Integumentary Integumentary: Absent: rash - Psychiatric Psychiatric: appropriate mood/affect - Neurologic Neurologic: no focal deficits Results - Labs CBC & Chem 7: 03/19/21 07:20 03/19/21 07:20 Labs: Laboratory Last Values WBC 5.5 K/mm3 (4.5-11.0) 03/19/21 07:20 RBC 4.88 M/mm3 (3.65-5.03) 03/19/21 07:20 Hgb 13.3 gm/dl (10.1-14.3) 03/19/21 07:20 Hct 39.5 % (30.3-42.9) 03/19/21 07:20 MCV 81 fl (79-97) 03/19/21 07:20 MCH 27 pg (28-32) L 03/19/21 07:20 MCHC 34 % (30-34) 03/19/21 07:20 RDW 13.1 % (13.2-15.2) L 03/19/21 07:20 Plt Count 250 K/mm3 (140-440) 03/19/21 07:20 Lymph % (Auto) 32.1 % (13.4-35.0) 03/19/21 07:20 [place] % (Auto) 7.6 % (0.0-7.3) H 03/19/21 07:20 Eos % (Auto) 0.0 % (0.0-4.3) 03/19/21 07:20 Baso % (Auto) 0.2 % (0.0-1.8) 03/19/21 07:20 Lymph # (Auto) 1.8 K/mm3 (1.2-5.4) 03/19/21 07:20 [place] # (Auto) 0.4 K/mm3 (0.0-0.8) 03/19/21 07:20 Eos # (Auto) 0.0 K/mm3 (0.0-0.4) 03/19/21 07:20 Baso # (Auto) 0.0 K/mm3 (0.0-0.1) 03/19/21 07:20 Add Manual Diff Complete 03/17/21 13:09 Total Counted 100 03/17/21 13:09 Seg Neutrophils % 60.1 % (40.0-70.0) 03/19/21 07:20 Seg Neuts % (Manual) 80.0 % (40.0-70.0) H 03/17/21 13:09 Band Neutrophils % 4.0 % 03/17/21 13:09 Lymphocytes % (Manual) 12.0 % (13.4-35.0) L 03/17/21 13:09 Monocytes % (Manual) 4.0 % (0.0-7.3) 03/17/21 13:09 Nucleated RBC % Not Reportable 03/17/21 13:09 Seg Neutrophils # 3.3 K/mm3 (1.8-7.7) 03/19/21 07:20 Seg Neutrophils # Man 4.2 K/mm3 (1.8-7.7) 03/17/21 13:09 Band Neutrophils # 0.2 K/mm3 03/17/21 13:09 Lymphocytes # (Manual) 0.6 K/mm3 (1.2-5.4) L 03/17/21 13:09 Abs React Lymphs (Man) 0.0 K/mm3 03/17/21 13:09 Monocytes # (Manual) 0.2 K/mm3 (0.0-0.8) 03/17/21 13:09 Eosinophils # (Manual) 0.0 K/mm3 (0.0-0.4) 03/17/21 13:09 Basophils # (Manual) 0.0 K/mm3 (0.0-0.1) 03/17/21 13:09 Metamyelocytes # 0.0 K/mm3 03/17/21 13:09 Myelocytes # 0.0 K/mm3 03/17/21 13:09 Promyelocytes # 0.0 K/mm3 03/17/21 13:09 Blast Cells # 0.0 K/mm3 03/17/21 13:09 WBC Morphology Not Reportable 03/17/21 13:09 Hypersegmented Neuts Not Reportable 03/17/21 13:09 Hyposegmented Neuts Not Reportable 03/17/21 13:09 Hypogranular Neuts Not Reportable 03/17/21 13:09 Smudge Cells Not Reportable 03/17/21 13:09 Toxic Granulation Not Reportable 03/17/21 13:09 Toxic Vacuolation Not Reportable 03/17/21 13:09 Dohle Bodies Not Reportable 03/17/21 13:09 Pelger-Huet Anomaly Not Reportable 03/17/21 13:09 Quang Rods Not Reportable 03/17/21 13:09 Platelet Estimate Consistent w auto 03/17/21 13:09 Clumped Platelets Not Reportable 03/17/21 13:09 Plt Clumps, EDTA Not Reportable 03/17/21 13:09 Large Platelets Not Reportable 03/17/21 13:09 Giant Platelets Not Reportable 03/17/21 13:09 Platelet Satelliting Not Reportable 03/17/21 13:09 Plt Morphology Comment Not Reportable 03/17/21 13:09 RBC Morphology Not Reportable 03/17/21 13:09 Dimorphic RBCs Not Reportable 03/17/21 13:09 Polychromasia Not Reportable 03/17/21 13:09 Hypochromasia Not Reportable 03/17/21 13:09 Poikilocytosis Not Reportable 03/17/21 13:09 Anisocytosis Not Reportable 03/17/21 13:09 Microcytosis Not Reportable 03/17/21 13:09 Macrocytosis Not Reportable 03/17/21 13:09 Spherocytes Not Reportable 03/17/21 13:09 Pappenheimer Bodies Not Reportable 03/17/21 13:09 Sickle Cells Not Reportable 03/17/21 13:09 Target Cells Not Reportable 03/17/21 13:09 Tear Drop Cells Not Reportable 03/17/21 13:09 Ovalocytes Not Reportable 03/17/21 13:09 Helmet Cells Not Reportable 03/17/21 13:09 [place] Bodies Not Reportable 03/17/21 13:09 [place] Rings Not Reportable 03/17/21 13:09 [place] Cells Not Reportable 03/17/21 13:09 Bite Cells Not Reportable 03/17/21 13:09 Crenated Cell Not Reportable 03/17/21 13:09 Elliptocytes Not Reportable 03/17/21 13:09 Acanthocytes (Spur) Not Reportable 03/17/21 13:09 Rouleaux Not Reportable 03/17/21 13:09 Hemoglobin C Crystals Not Reportable 03/17/21 13:09 Schistocytes Not Reportable 03/17/21 13:09 Malaria parasites Not Reportable 03/17/21 13:09 Ilan Bodies Not Reportable 03/17/21 13:09 Hem Pathologist Commnt No 03/17/21 13:09 D-Dimer 472.87 ng/mlDDU (0-234) H 03/17/21 15:43 Sodium 145 mmol/L (137-145) 03/19/21 07:20 Potassium 3.9 mmol/L (3.6-5.0) 03/19/21 07:20 Chloride 105.7 mmol/L (98-107) 03/19/21 07:20 Carbon Dioxide 30 mmol/L (22-30) 03/19/21 07:20 Anion Gap 13 mmol/L 03/19/21 07:20 BUN 7 mg/dL (7-17) 03/19/21 07:20 Creatinine 0.5 mg/dL (0.6-1.2) L 03/19/21 07:20 Estimated GFR > 60 ml/min 03/19/21 07:20 BUN/Creatinine Ratio 14 % 03/19/21 07:20 Glucose 83 mg/dL (65-100) 03/19/21 07:20 Lactic Acid 1.00 mmol/L (0.7-2.0) 03/17/21 15:43 Calcium 8.5 mg/dL (8.4-10.2) 03/19/21 07:20 Magnesium 2.30 mg/dL (1.7-2.3) 03/17/21 15:43 Total Bilirubin 0.20 mg/dL (0.1-1.2) 03/19/21 07:20 AST 27 units/L (5-40) 03/19/21 07:20 ALT 21 units/L (7-56) 03/19/21 07:20 Alkaline Phosphatase 63 units/L (35-129) 03/19/21 07:20 Lactate Dehydrogenase 292 units/L (91-180) H 03/17/21 15:43 Total Creatine Kinase 241 units/L (30-135) H 03/17/21 15:43 C-Reactive Protein 1.90 mg/dL (0.00-1.30) H 03/17/21 15:43 Total Protein 6.5 g/dL (6.3-8.2) 03/19/21 07:20 Albumin 3.6 g/dL (3.9-5) L 03/19/21 07:20 Albumin/Globulin Ratio 1.2 % 03/19/21 07:20 Procalcitonin < 0.05 ng/mL (<0.15) 03/17/21 15:43 HCG, Quant < 2 mIU/mL (0-4) 03/17/21 15:43 Coronavirus (PCR) Positive (Negative) A 03/17/21 Unknown Microbiology: Microbiology 03/17/21 15:53 Peripheral/Venous Blood Culture - Preliminary NO GROWTH AFTER 24 HOURS 03/17/21 15:43 Peripheral/Venous Blood Culture - Preliminary NO GROWTH AFTER 24 HOURS Milligan/IV: Voiding Method Toilet Active Medications - Current Medications Current Medications: Generic Name Dose Route Start Last Admin Trade Name Freq PRN Reason Stop Dose Admin Acetaminophen 650 mg 03/18/21 00:32 Acetaminophen 325 Mg Tab PO Q4H PRN Pain MILD(1-3)/Fever >100.5/KAUFMAN Ascorbic Acid 1,000 mg 03/18/21 10:00 03/19/21 11:09 Ascorbic Acid 500 Mg Tab PO 1,000 mg BID CHANDA Administration Cholecalciferol 5,000 unit 03/18/21 10:00 03/19/21 11:10 Cholecalciferol (Vit D3) 5,000 Unit Tab PO 5,000 unit DAILY CHANDA Administration Dexamethasone 8 mg 03/18/21 10:00 03/19/21 11:09 Dexamethasone 4 Mg/Ml Vial IV 03/26/21 10:01 8 mg Q24HR CHANDA Administration Enoxaparin Sodium 40 mg 03/18/21 10:00 03/19/21 11:10 Enoxaparin 40 Mg/0.4 Ml Inj SUB-Q 40 mg QDAY CHANDA Administration Famotidine 20 mg 03/18/21 10:00 03/19/21 11:40 Famotidine 20 Mg Tab PO 20 mg BID CHANDA Administration Hydromorphone HCl 0.5 mg 03/18/21 00:34 Hydromorphone 1 Mg/1 Ml Inj IV Q3H PRN Pain , Severe (7-10) Azithromycin 500 mg in 250 mls @ 250 mls/hr 03/18/21 10:00 03/19/21 11:11 Zithromax/Ns IV 03/22/21 10:59 250 mls/hr Q24HR CHANDA Administration Ceftriaxone Sodium 2 gm in 100 mls @ 200 mls/hr 03/18/21 10:00 03/19/21 11:11 Rocephin/Ns 2 Gm/100 Ml IV 03/23/21 09:59 200 mls/hr Q24HR CHANDA Administration Protocol Metoclopramide HCl 10 mg 03/18/21 00:34 Metoclopramide 10 Mg/2 Ml Inj IV Q6H PRN Nausea And Vomiting Ondansetron HCl 4 mg 03/18/21 00:32 03/18/21 12:29 Ondansetron 4 Mg/2 Ml Inj IV 4 mg Q8H PRN Administration Nausea And Vomiting Oxycodone/Acetaminophen 1 tab 03/18/21 00:33 Oxycodone /Acetaminophen 5-325mg Tab PO Q4H PRN Pain, Moderate (4-6) Sodium Chloride 10 ml 03/18/21 10:00 03/19/21 11:11 Sodium Chloride 0.9% 10 Ml Flush Syringe IV 10 ml BID CHANDA Administration Sodium Chloride 10 ml 03/18/21 00:32 Sodium Chloride 0.9% 10 Ml Flush Syringe IV PRN PRN LINE FLUSH Zinc Sulfate 220 mg 03/18/21 10:00 03/19/21 11:09 Zinc Sulfate 220 Mg Cap PO 220 mg BID CHANDA Administration
[2021-03-20] MEDS: FAMOTIDINE 20 MG TAB PO SCH ×2 (10:03→22:07)
[2021-03-20] MEDS: ASCORBIC ACID 500 MG TAB PO SCH (10:03)
[2021-03-20] MEDS: cefTRIAXone/NS 2 GM/100 ML 2 GM/100 ML BAG IV SCH (10:03)
[2021-03-20] MEDS: CHOLECALCIFEROL (VIT D3) 5,000 UNIT TAB PO SCH (10:03)
[2021-03-20] MEDS: ENOXAPARIN 40 MG/0.4 ML INJ SUB-Q SCH (10:03)
[2021-03-20] MEDS: dexAMETHasone 4 MG/ML VIAL IV SCH (10:04)
[2021-03-20] MEDS: ZINC SULFATE 220 MG CAP PO SCH (10:04)
[2021-03-20] MEDS: AZITHROMYCIN/NS 500 MG/250 ML 500 MG/250 ML BAG IV SCH (10:05)
[2021-03-20] MEDS: ONDANSETRON 4 MG/2 ML INJ IV PRN (12:26)
--- NOTE | 2021-03-20 13:56 | Progress Note ---
Assessment and Plan Assessment and plan: 26-year-old female presents to the emergency room with generalized weakness and shortness of breath for several days. Patient also has headache, loss of taste and smell, nausea. Also body aches malaise and fatigue. Patient has not received Covid vaccination. Patient is not sure whether she was exposed to Covid patient. No significant past medical history except for GERD and anemia. Patient also has generalized weakness. (1) Acute respiratory failure with hypoxia Current Visit: Yes Status: Acute Plan to address problem: O2 sats dropped to 87% with ambulation in ED, placed on nasal cannula oxygen Patient remains on room air and at rest. ABG on 03/20 showed 7.48, 33, 81 on room air. Markers of inflammation normal, CRP 0.20. We will obtain 6-minute walk test prior to discharge. Discharge deferred due to significant nausea and vomiting today (2) SIRS (systemic inflammatory response syndrome), low-grade fever Current Visit: Yes Status: Acute Plan to address problem: Patient tachycardic and hypoxic Fever seems to be resolving since on Decadron, vital signs stable at rest currently. (3) Bilateral pneumonia on CT and cxr Current Visit: Yes Status: Acute Qualifiers: Lung location: lower lobe of lung Plan to address problem: Patient initiated on Zithromax and IV Rocephin (4) 2019 novel coronavirus infection Current Visit: Yes Status: Acute Plan to address problem: Tested positive for coronavirus by PCR Patient initiated on IV Decadron 8 mg every 24 hours Patient also initiated on zinc sulfate vitamin C and vitamin D (5) elevated D-dimer CTA negative for PE and us negative for DVT (6) nausea, vomiting and diarrhea Likely related to COVID-19 virus Vomited multiple times today, will defer discharge. We will hold oxycodone and the vitamins as it can exacerbate nausea DVT prophylaxis Current Visit: No Status: Acute Plan to address problem: On Lovenox and GI prophylaxis d/w pt and RN History Interval history: Patient states that he is not feeling well today with significant nausea and vomiting. Also has diarrhea. She is on multiple vitamins which are negative at nausea. Discharge deferred pending improvement of vomiting. Patient reports breathing better. Remains on room air with normal sats at rest. O2 sats dropped to 87% with walking in ED. she has lot of cough, T-max of 101, resolving since on Decadron, PO2 81 on room air by ABG. Hospitalist Physical - Constitutional Vitals: Temp Pulse Resp BP Pulse Ox 97.8 F 88 18 116/75 93 03/20/21 10:19 03/20/21 10:19 03/20/21 10:19 03/20/21 10:19 03/20/21 10:19 General appearance: Present: mild distress (From nausea/vomiting), well- nourished, other (morbidly obese) - EENT Eyes: Present: PERRL, EOM intact ENT: clear oral mucosa - Neck Neck: Present: supple, other (No JVD) - Respiratory Respiratory effort: normal Respiratory: bilateral: diminished - Cardiovascular Rhythm: regular - Extremities Extremities: No edema - Abdominal General gastrointestinal: soft, non-tender, non-distended, normal bowel sounds - Integumentary Integumentary: Absent: jaundice, rash - Neurologic Neurologic: no focal deficits Results - Labs CBC & Chem 7: 03/19/21 07:20 03/19/21 07:20 Labs: Laboratory Last Values WBC 5.5 K/mm3 (4.5-11.0) 03/19/21 07:20 RBC 4.88 M/mm3 (3.65-5.03) 03/19/21 07:20 Hgb 13.3 gm/dl (10.1-14.3) 03/19/21 07:20 Hct 39.5 % (30.3-42.9) 03/19/21 07:20 MCV 81 fl (79-97) 03/19/21 07:20 MCH 27 pg (28-32) L 03/19/21 07:20 MCHC 34 % (30-34) 03/19/21 07:20 RDW 13.1 % (13.2-15.2) L 03/19/21 07:20 Plt Count 250 K/mm3 (140-440) 03/19/21 07:20 Lymph % (Auto) 32.1 % (13.4-35.0) 03/19/21 07:20 [place] % (Auto) 7.6 % (0.0-7.3) H 03/19/21 07:20 Eos % (Auto) 0.0 % (0.0-4.3) 03/19/21 07:20 Baso % (Auto) 0.2 % (0.0-1.8) 03/19/21 07:20 Lymph # (Auto) 1.8 K/mm3 (1.2-5.4) 03/19/21 07:20 [place] # (Auto) 0.4 K/mm3 (0.0-0.8) 03/19/21 07:20 Eos # (Auto) 0.0 K/mm3 (0.0-0.4) 03/19/21 07:20 Baso # (Auto) 0.0 K/mm3 (0.0-0.1) 03/19/21 07:20 Add Manual Diff Complete 03/17/21 13:09 Total Counted 100 03/17/21 13:09 Seg Neutrophils % 60.1 % (40.0-70.0) 03/19/21 07:20 Seg Neuts % (Manual) 80.0 % (40.0-70.0) H 03/17/21 13:09 Band Neutrophils % 4.0 % 03/17/21 13:09 Lymphocytes % (Manual) 12.0 % (13.4-35.0) L 03/17/21 13:09 Monocytes % (Manual) 4.0 % (0.0-7.3) 03/17/21 13:09 Nucleated RBC % Not Reportable 03/17/21 13:09 Seg Neutrophils # 3.3 K/mm3 (1.8-7.7) 03/19/21 07:20 Seg Neutrophils # Man 4.2 K/mm3 (1.8-7.7) 03/17/21 13:09 Band Neutrophils # 0.2 K/mm3 03/17/21 13:09 Lymphocytes # (Manual) 0.6 K/mm3 (1.2-5.4) L 03/17/21 13:09 Abs React Lymphs (Man) 0.0 K/mm3 03/17/21 13:09 Monocytes # (Manual) 0.2 K/mm3 (0.0-0.8) 03/17/21 13:09 Eosinophils # (Manual) 0.0 K/mm3 (0.0-0.4) 03/17/21 13:09 Basophils # (Manual) 0.0 K/mm3 (0.0-0.1) 03/17/21 13:09 Metamyelocytes # 0.0 K/mm3 03/17/21 13:09 Myelocytes # 0.0 K/mm3 03/17/21 13:09 Promyelocytes # 0.0 K/mm3 03/17/21 13:09 Blast Cells # 0.0 K/mm3 03/17/21 13:09 WBC Morphology Not Reportable 03/17/21 13:09 Hypersegmented Neuts Not Reportable 03/17/21 13:09 Hyposegmented Neuts Not Reportable 03/17/21 13:09 Hypogranular Neuts Not Reportable 03/17/21 13:09 Smudge Cells Not Reportable 03/17/21 13:09 Toxic Granulation Not Reportable 03/17/21 13:09 Toxic Vacuolation Not Reportable 03/17/21 13:09 Dohle Bodies Not Reportable 03/17/21 13:09 Pelger-Huet Anomaly Not Reportable 03/17/21 13:09 Quang Rods Not Reportable 03/17/21 13:09 Platelet Estimate Consistent w auto 03/17/21 13:09 Clumped Platelets Not Reportable 03/17/21 13:09 Plt Clumps, EDTA Not Reportable 03/17/21 13:09 Large Platelets Not Reportable 03/17/21 13:09 Giant Platelets Not Reportable 03/17/21 13:09 Platelet Satelliting Not Reportable 03/17/21 13:09 Plt Morphology Comment Not Reportable 03/17/21 13:09 RBC Morphology Not Reportable 03/17/21 13:09 Dimorphic RBCs Not Reportable 03/17/21 13:09 Polychromasia Not Reportable 03/17/21 13:09 Hypochromasia Not Reportable 03/17/21 13:09 Poikilocytosis Not Reportable 03/17/21 13:09 Anisocytosis Not Reportable 03/17/21 13:09 Microcytosis Not Reportable 03/17/21 13:09 Macrocytosis Not Reportable 03/17/21 13:09 Spherocytes Not Reportable 03/17/21 13:09 Pappenheimer Bodies Not Reportable 03/17/21 13:09 Sickle Cells Not Reportable 03/17/21 13:09 Target Cells Not Reportable 03/17/21 13:09 Tear Drop Cells Not Reportable 03/17/21 13:09 Ovalocytes Not Reportable 03/17/21 13:09 Helmet Cells Not Reportable 03/17/21 13:09 [place] Bodies Not Reportable 03/17/21 13:09 [place] Rings Not Reportable 03/17/21 13:09 [place] Cells Not Reportable 03/17/21 13:09 Bite Cells Not Reportable 03/17/21 13:09 Crenated Cell Not Reportable 03/17/21 13:09 Elliptocytes Not Reportable 03/17/21 13:09 Acanthocytes (Spur) Not Reportable 03/17/21 13:09 Rouleaux Not Reportable 03/17/21 13:09 Hemoglobin C Crystals Not Reportable 03/17/21 13:09 Schistocytes Not Reportable 03/17/21 13:09 Malaria parasites Not Reportable 03/17/21 13:09 Ilan Bodies Not Reportable 03/17/21 13:09 Hem Pathologist Commnt No 03/17/21 13:09 D-Dimer 196.59 ng/mlDDU (0-234) 03/20/21 06:39 ABG pH 7.483 (7.320-7.450) H 03/20/21 11:33 POC ABG pCO2 33.7 mmHg (32.0-48.0) 03/20/21 11:33 POC ABG pO2 81.3 mmHg (83-108) L 03/20/21 11:33 POC ABG HCO3 24.7 03/20/21 11:33 ABG O2 Saturation 96.6 (0-100) 03/20/21 11:33 POC ABG Base Excess 1.8 03/20/21 11:33 ABG Hemoglobin 13.9 (12.0-17.5) 03/20/21 11:33 ABG Oxyhemoglobin 96.0 (94-98) 03/20/21 11:33 ABG Methemoglobin 0.3 (0.0-1.5) 03/20/21 11:33 ABG Sodium 140.4 mmol/L (136.0-145.0) 03/20/21 11:33 ABG Potassium 3.2 mmol/L (3.40-4.50) L 03/20/21 11:33 ABG Chloride 106.0 mmol/L (98-107) 03/20/21 11:33 ABG Glucose 154 mg/dL (65-95) H 03/20/21 11:33 Carboxyhemoglobin 0.3 (0.5-1.5) L 03/20/21 11:33 FiO2 % 21.0 03/20/21 11:33 Sodium 145 mmol/L (137-145) 03/19/21 07:20 Potassium 3.9 mmol/L (3.6-5.0) 03/19/21 07:20 Chloride 105.7 mmol/L (98-107) 03/19/21 07:20 Carbon Dioxide 30 mmol/L (22-30) 03/19/21 07:20 Anion Gap 13 mmol/L 03/19/21 07:20 BUN 7 mg/dL (7-17) 03/19/21 07:20 Creatinine 0.5 mg/dL (0.6-1.2) L 03/19/21 07:20 Estimated GFR > 60 ml/min 03/19/21 07:20 BUN/Creatinine Ratio 14 % 03/19/21 07:20 Glucose 83 mg/dL (65-100) 03/19/21 07:20 Lactic Acid 1.00 mmol/L (0.7-2.0) 03/17/21 15:43 Calcium 8.5 mg/dL (8.4-10.2) 03/19/21 07:20 Magnesium 2.30 mg/dL (1.7-2.3) 03/17/21 15:43 Total Bilirubin 0.20 mg/dL (0.1-1.2) 03/19/21 07:20 AST 27 units/L (5-40) 03/19/21 07:20 ALT 21 units/L (7-56) 03/19/21 07:20 Alkaline Phosphatase 63 units/L (35-129) 03/19/21 07:20 Lactate Dehydrogenase 292 units/L (91-180) H 03/17/21 15:43 Total Creatine Kinase 241 units/L (30-135) H 03/17/21 15:43 C-Reactive Protein 0.20 mg/dL (0.00-1.30) 03/20/21 06:39 Total Protein 6.5 g/dL (6.3-8.2) 03/19/21 07:20 Albumin 3.6 g/dL (3.9-5) L 03/19/21 07:20 Albumin/Globulin Ratio 1.2 % 03/19/21 07:20 Procalcitonin < 0.05 ng/mL (<0.15) 03/17/21 15:43 HCG, Quant < 2 mIU/mL (0-4) 03/17/21 15:43 Arterial Blood Glucose 154 mg/dL (65-95) H 03/20/21 11:33 Arterial Blood Ionized Calcium 4.4 mg/dL (4.6-5.3) L 03/20/21 11:33 Coronavirus (PCR) Positive (Negative) A 03/17/21 Unknown Microbiology: Microbiology 03/17/21 15:53 Peripheral/Venous Blood Culture - Preliminary NO GROWTH AFTER 48 HOURS 03/17/21 15:43 Peripheral/Venous Blood Culture - Preliminary NO GROWTH AFTER 48 HOURS Milligan/IV: Voiding Method Toilet Active Medications - Current Medications Current Medications: Generic Name Dose Route Start Last Admin Trade Name Freq PRN Reason Stop Dose Admin Acetaminophen 650 mg 03/18/21 00:32 Acetaminophen 325 Mg Tab PO Q4H PRN Pain MILD(1-3)/Fever >100.5/KAUFMAN Cholecalciferol 5,000 unit 03/18/21 10:00 03/20/21 10:03 Cholecalciferol (Vit D3) 5,000 Unit Tab PO 5,000 unit DAILY CHANDA Administration Dexamethasone 8 mg 03/18/21 10:00 03/20/21 10:04 Dexamethasone 4 Mg/Ml Vial IV 03/26/21 10:01 8 mg Q24HR CHANDA Administration Enoxaparin Sodium 40 mg 03/18/21 10:00 03/20/21 10:03 Enoxaparin 40 Mg/0.4 Ml Inj SUB-Q 40 mg QDAY CHANDA Administration Famotidine 20 mg 03/18/21 10:00 03/20/21 10:03 Famotidine 20 Mg Tab PO 20 mg BID CHANDA Administration Hydromorphone HCl 0.5 mg 03/18/21 00:34 Hydromorphone 1 Mg/1 Ml Inj IV Q3H PRN Pain , Severe (7-10) Azithromycin 500 mg in 250 mls @ 250 mls/hr 03/18/21 10:00 03/20/21 10:05 Zithromax/Ns IV 03/22/21 10:59 250 mls/hr Q24HR CHANDA Administration Ceftriaxone Sodium 2 gm in 100 mls @ 200 mls/hr 03/18/21 10:00 03/20/21 10:03 Rocephin/Ns 2 Gm/100 Ml IV 03/23/21 09:59 200 mls/hr Q24HR CHANDA Administration Protocol Metoclopramide HCl 10 mg 03/18/21 00:34 Metoclopramide 10 Mg/2 Ml Inj IV Q6H PRN Nausea And Vomiting Ondansetron HCl 4 mg 03/18/21 00:32 03/20/21 12:26 Ondansetron 4 Mg/2 Ml Inj IV 4 mg Q8H PRN Administration Nausea And Vomiting Oxycodone/Acetaminophen 1 tab 03/18/21 00:33 Oxycodone /Acetaminophen 5-325mg Tab PO Q4H PRN Pain, Moderate (4-6) Sodium Chloride 10 ml 03/18/21 10:00 03/20/21 10:05 Sodium Chloride 0.9% 10 Ml Flush Syringe IV 10 ml BID CHANDA Administration Sodium Chloride 10 ml 03/18/21 00:32 Sodium Chloride 0.9% 10 Ml Flush Syringe IV PRN PRN LINE FLUSH
[2021-03-20] MEDS ORDERED: ONDANSETRON 4 MG/2 ML INJ IV PRN (14:04)
[2021-03-21] MEDS ORDERED: DEXAMETHASONE 4 MG TAB PO SCH (10:00)
[2021-03-21] MEDS: ENOXAPARIN 40 MG/0.4 ML INJ SUB-Q SCH (10:16)
[2021-03-21] MEDS: CHOLECALCIFEROL (VIT D3) 5,000 UNIT TAB PO SCH (10:16)
[2021-03-21] MEDS: FAMOTIDINE 20 MG TAB PO SCH (10:17)
[2021-03-21] MEDS: cefTRIAXone/NS 2 GM/100 ML 2 GM/100 ML BAG IV SCH (10:18)
[2021-03-21 13:40] VITALS: BP 110/67
--- NOTE | 2021-03-21 15:10 | Discharge Summary ---
Providers - Providers Date of Admission: 03/18/21 16:30 Attending physician: SAMMI COELHO MD Primary care physician: PHARMACIST IN CHARGE Hospitalization Condition: Stable Disposition: DC-01 TO HOME OR SELFCARE Final Discharge Diagnosis (Prints w/discharge instructions): Covid-19 infection with [place] Time spent for discharge: 35 minutes Core Measure Documentation - Core Measures Any of the following diagnoses?: none Exam - Constitutional Vitals: Temp Pulse Resp BP Pulse Ox 98.0 F 71 20 110/67 87 03/21/21 11:19 03/21/21 11:20 03/21/21 11:19 03/21/21 11:20 03/21/21 11:59 Plan Activity: advance as tolerated Weight Bearing Status: Weight Bear as Tolerated Diet: low fat Additional Instructions: See your family docotor in 1 week. Wear mask until vaccinated. isolate yourself for 10-14 days. get covid vaccine after 1 month Follow up with: PRIMARY CARE, [Primary Care Provider] - 3-5 Days Prescriptions: Famotidine [Acid-Pep] 20 mg PO BID #60 tablet Dexamethasone [Decadron] 6 mg PO DAILY #8 tablet Ascorbic Acid [Vitamin C] 1,000 mg PO DAILY #30 tablet Cholecalciferol Vit D3 [Vitamin D3 1,000 UNIT TAB] 1,000 unit PO DAILY #30 tablet
== END 2021-03-21 18:00 | disposition home or self-care (01) | DRG 177 ==
LOC: ED 10:03 → 3A 15:48 → OBSVTOIN 03-18 16:30 → INTOOBSV 03-18 16:30 → OBSVTOIN 03-19 16:30
PROVIDERS: ADMIT Internal Medicine; ATTEND Internal Medicine
PROC: 4A033R1 Measurement of Arterial Saturation, Peripheral, Percutaneous Approach (ICD-10-PCS; principal; 2021-03-20)
DX: U07.1 COVID-19 (principal); J96.01 Acute respiratory failure with hypoxia; J12.82 Pneumonia due to coronavirus disease 2019; R65.10 Systemic inflammatory response syndrome (SIRS) of non-infectious origin without acute organ dysfunction; R19.7 Diarrhea, unspecified; Z90.49 Acquired absence of other specified parts of digestive tract; K21.9 Gastro-esophageal reflux disease without esophagitis
CPT/HCPCS: 36415; 36600; 71045; 71275; 80053; 82140; 82550; 82805; 83615; 83735; 84145; 84702; 85007; 85025; 85379; 86140; 87040; 93005; 93970; 96374; 96375; G0378; J0456; J0696; J1100; J1650; J2405; J2765; J7120; J8540; Q9967; U0003

== ENCOUNTER → 2021-06-01 | Outpatient (CLI) | payer MEDICAID | END | disposition home or self-care (01) | LOC: SLR 11:00 | PROVIDERS: ATTEND Surgery | DX: G47.30 Sleep apnea, unspecified (principal) | CPT/HCPCS: G0399 ==

== ENCOUNTER 2021-10-18 07:00 | Day surgery (SDC) | payer MEDICAID ==
[~2021-10-18 07:00] MED LIST: SODIUM CHLORIDE 0.9% 1000 ML 1,000 ML IV SCH
--- NOTE | 2021-10-18 08:17 | Operative Report ---
Operative Report Operative Report: DATE: 10/18/2021 SURGERY: Upper endoscopy. SURGEON: Jennifer López M.D. PROCEDURE: EGD with biopsy PRE OP DX: morbid obesity, GERD POST OP DX: morbid obesity, GERD TYPE OF ANESTHESIA: MAC. ESTIMATED BLOOD LOSS: None. COMPLICATIONS: None. SPECIMENS REMOVED: antral biopsy FINDINGS: 1. Small hiatal hernia. 2. mild gastritis INDICATIONS:INDICATION FOR PROCEDURE: Patient is a 26-year-old female with a long history of morbid obesity. She is planned to have a weight loss procedure and is here for preoperative planning EGD. PROCEDURE DETAILS: After consent was reviewed, patient was taken back to the operating room where patient was placed in the left lateral decubitus position and a bite block was placed in the mouth. After a time-out was called, MAC anesthesia was initiated. I then passed the endoscope into her oropharynx, into her esophagus, visualized the entire esophagus, which was all within normal limits. Z-line was noted to about 37cm from incisors. I then visualized the stomach and the first portion of the duodenum and there were no abnormalities I could clearly visualize except for antral gastritis. A cold forceps biopsy of the antrum was taken and will be sent to pathology to evaluate for H.pylori. I then retroflexed the scope in the stomach and visualized the hiatus and I could see a small hiatal hernia. I then desufflated the stomach and removed the endoscope. Patient tolerated procedure well and was transferred to recovery room in good and stable condition.
--- NOTE | 2021-10-18 08:18 | Discharge Summary ---
Providers - Providers Date of Admission: 10/18/2021 Date of discharge: 10/18/21 Attending physician: BAYLEE WASHINGTON MD Primary care physician: HEAD BANQUET WAITRESS Hospitalization Reason for admission: pre-op egd Condition: Good Procedures: egd with bx Hospital course: Pt presented for a pre-op EGD as part of planning for up coming bariatric surgery. Procedure was uneventful and pt recovered well and was discharged to home. Disposition: 01 HOME / SELF CARE / HOMELESS Final Discharge Diagnosis (Prints w/discharge instructions): morbid obesity, dyspepsia Core Measure Documentation - Palliative Care Palliative Care/ Comfort Measures: Not Applicable - Core Measures Any of the following diagnoses?: none Exam - Physical Exam Narrative exam: unchanged from pre-op Plan Activity: advance as tolerated Diet: low carbohydrate Follow up with: PRIMARY CAREMD [Primary Care Provider] - 7 Days
--- NOTE | 2021-10-18 09:15 | Anesthesia Day of Surgery ---
Anesthesia Day of Surgery - Day of Surgery Patient Examined: Yes Patient H&P Reviewed: Yes Patient is NPO: Yes
--- NOTE | 2021-10-18 09:15 | Anesthesia Consultation ---
Anesthesia Consult and Med Hx Date of service: 10/18/21 - Airway Anesthetic Teeth Evaluation: Good ROM Head & Neck: Adequate Mental/Hyoid Distance: Adequate Mallampati Class: Class II Intubation Access Assessment: Probably Good - Pre-Operative Health Status ASA Pre-Surgery Classification: ASA2 Proposed Anesthetic Plan: MAC - Pulmonary Hx Smoking: No Hx Respiratory Symptoms: No - Cardiovascular System Hx Hypertension: No - Central Nervous System CVA: No - Endocrine Hx Renal Disease: No Hx Liver Disease: No Hx Insulin Dependent Diabetes: No Hx Non-Insulin Dependent Diabetes: No Hx Thyroid Disease: No - Other Systems Hx Obesity: Yes (BMI 51) - Additional Comments Anesthesia Medical History Comments: No hx anesthetic complications.
[2021-10-18] MEDS ORDERED: LIDOCAINE MPF (2%) 20 MG/1 ML VIAL 5 ML ONE (09:40)
[2021-10-18] MEDS ORDERED: propofoL 200 MG/20 ML VIAL IV ONE (09:40)
--- NOTE | 2021-10-18 10:51 | Post Anesthesia Evaluation ---
- Post Anesthesia Evaluation Patient Participated: Yes Airway Patent: Yes Stable Respiratory Function: Yes Nausea/Vomiting: No Temp > 96.8F: Yes Pain Manageable: Yes Adequeate Hydration: Yes Anesthesia Complications: No
[2021-10-18 11:16] VITALS: BP 115/70
== END 2021-10-18 10:30 | disposition home or self-care (01) ==
LOC: GIO 07:00
PROVIDERS: ATTEND Surgery
DX: K21.9 Gastro-esophageal reflux disease without esophagitis (principal); E66.01 Morbid (severe) obesity due to excess calories; K30 Functional dyspepsia; K44.9 Diaphragmatic hernia without obstruction or gangrene; K29.70 Gastritis, unspecified, without bleeding; F32.9 Major depressive disorder, single episode, unspecified; Z79.899 Other long term (current) drug therapy; Z90.49 Acquired absence of other specified parts of digestive tract; Z80.8 Family history of malignant neoplasm of other organs or systems; Z98.890 Other specified postprocedural states; Z87.440 Personal history of urinary (tract) infections; Z68.43 Body mass index [BMI] 50.0-59.9, adult; Z82.49 Family history of ischemic heart disease and other diseases of the circulatory system
CPT/HCPCS: 43239; 81025; 88305; 88342; J2704; J3490; J7030; J7120; Q0162

== ENCOUNTER 2022-01-03 13:56 | Emergency (ER) | payer MEDICAID ==
[2022-01-03 15:21] VITALS: BP 111/65
[2022-01-03] MEDS ORDERED: SODIUM CHLORIDE 0.9% 1000 ML 1,000 ML IV ONE (17:44)
[2022-01-03] MEDS ORDERED: ONDANSETRON 4 MG/2 ML INJ IV ONE (17:45)
[2022-01-03 18:06] LABS: Hematocrit 37.1 % (30.3-42.9); Hemoglobin 12.2 gm/dl (10.1-14.3); Mean Corpuscular HGB Conc 33 % (30-34); Mean Corpuscular Volume 80 fl (79-97); Platelet Count 276 K/mm3 (140-440); Red Blood Count 4.64 M/mm3 (3.65-5.03); Red Cell Distribution Width 14.2 % (13.2-15.2)
[2022-01-03 18:27] LABS: Alanine Aminotransferase 15 units/L (7-56); Albumin 3.6 g/dL (3.9-5); Blood Urea Nitrogen 5 mg/dL (7-17); Calcium 8.8 mg/dL (8.4-10.2); Hemolysis Index 0
[2022-01-03 18:28] LABS: BUN/Creatinine Ratio 10
--- NOTE | 2022-01-03 19:09 | Ultrasound Report ---
ULTRASOUND OBSTETRIC INDICATION / CLINICAL INFORMATION: preg, abdominal pain. Clinical Gestational Age (GA): 12.0 weeks.days TECHNIQUE: Transabdominal. COMPARISON: None available. FINDINGS: GESTATIONAL SAC: Well-defined oval shape and intrauterine in location. YOLK SAC: No significant abnormality. EMBRYO/FETUS: No significant abnormality. - [place]-Rump Length = 5.45 cm = 12.1 weeks.days - Heart Rate, beats per minute (if present) = 174 ADNEXA: No significant abnormality. FREE FLUID: None. ADDITIONAL FINDINGS: None. IMPRESSION: 1. Single, living intrauterine with estimated sonographic age of 12.1 weeks.days. Signer Name: Riki Copeland MD Signed: 01/03/2022 7:05 PM Workstation Name: [id number]
[2022-01-03] MEDS ORDERED: METOCLOPRAMIDE 10 MG/2 ML INJ IV ONE (19:48)
[2022-01-03] MEDS ORDERED: diphenhydrAMINE 50 MG/ML VIAL IV ONE (19:48)
[2022-01-03 20:12] LABS: HCG Qualitative,Urine Positive (Negative)
[2022-01-03 20:19] LABS: Bilirubin,Urine NEG (Negative); Blood,Urine NEG (Negative); Color,Urine Yellow (Yellow); Mucus,Urine 3+ /HPF; Protein,Urine <15 mg/dL mg/dL (Negative); Urobilinogen,Urine < 2.0 mg/dL (<2.0)
--- NOTE | 2022-01-03 20:27 | Emergency Department Report ---
ED HPI - General Chief complaint: Abdominal Pain Stated complaint: VOMITTING Time Seen by Provider: 01/03/22 17:16 Source: patient Mode of arrival: Ambulatory Limitations: No Limitations - History of Present Illness Initial comments: 26-year-old black female who is about 12 weeks gestation presents to the emergency department for evaluation of persistent nausea vomiting and abdominal pain. She states that she has been using Zofran at home but still has had persistent nausea vomiting over past 2 to 3 days. She states that she has not developed pain and cramping in her abdominal area. She denies fever, vaginal bleeding, dysuria, and dizziness. MD Complaint: abdominal pain -: Gradual, days(s) (To) Location: abdomen Radiation: none Severity: moderate Severity scale (0 -10): 6 Quality: cramping, aching Consistency: intermittent Associated symptoms: nausea/vomiting, abdominal pain. denies: vaginal bleeding, vaginal discharge, dysuria, headache, vision changes, malaise, dysparuenia, shortness of breath, syncope, weakness Vaginal bleeding: none :: Yes Number of weeks : 12 OB History - Current : no complications - Related Data Previous Rx's Medication Instructions Recorded Last Taken Type Metoclopramide [Reglan] 10 mg PO TID PRN #21 tab 01/03/22 Unknown Rx Allergies Allergy/AdvReac Type Severity Reaction Status Date / Time No Known Allergies Allergy Verified 01/03/22 17:15 ED Review of Systems ROS: Stated complaint: VOMITTING Other details as noted in HPI Comment: All other systems reviewed and negative Constitutional: denies: chills, fever Respiratory: denies: shortness of breath, SOB with exertion, SOB at rest, wheezing Cardiovascular: denies: chest pain, palpitations Gastrointestinal: abdominal pain. denies: nausea, vomiting Musculoskeletal: denies: back pain Skin: denies: rash, lesions Neurological: denies: headache, weakness, numbness, paresthesias, confusion, abnormal gait, vertigo ED Past Medical Hx - Past Medical History Hx Hypertension: No Hx Congestive Heart Failure: No Hx Diabetes: No Hx Deep Vein Thrombosis: No Hx Liver Disease: No Hx Renal Disease: No Hx HIV: No - Surgical History Hx Cholecystectomy: Yes Additional Surgical History: Post op status 12/23 Gakkbladder removal via LAP - Social History Smoking Status: Never Smoker - Medications Home Medications: Home Medications Medication Instructions Recorded Confirmed Last Taken Type Metoclopramide [Reglan] 10 mg PO TID PRN #21 tab 01/03/22 Unknown Rx ED Physical Exam - General Limitations: No Limitations General appearance: alert, in no apparent distress - Head Head exam: Present: atraumatic, normocephalic - Eye Eye exam: Present: normal appearance. Absent: conjunctival injection - Neck Neck exam: Present: normal inspection, full ROM. Absent: tenderness, lymphadenopathy - Respiratory Respiratory exam: Present: normal lung sounds bilaterally. Absent: respiratory distress, wheezes, rales, rhonchi, stridor, chest wall tenderness - Cardiovascular Cardiovascular Exam: Present: tachycardia, normal heart sounds - GI/Abdominal GI/Abdominal exam: Present: soft, normal bowel sounds. Absent: tenderness, guarding, rebound, rigid - Extremities Exam Extremities exam: Present: normal inspection, normal capillary refill. Absent: tenderness, pedal edema, joint swelling, calf tenderness - Back Exam Back exam: Present: normal inspection, full ROM. Absent: tenderness, CVA tenderness (R), CVA tenderness (L), vertebral tenderness - Neurological Exam Neurological exam: Present: alert, oriented X3, normal gait - Psychiatric Psychiatric exam: Present: normal affect, normal mood - Skin Skin exam: Present: warm, dry, intact, normal color ED Course Vital Signs 01/03/22 01/03/22 15:20 20:41 Temperature 98.3 F 98.9 F Pulse Rate 122 H 100 H Respiratory 16 16 Rate Blood Pressure 111/65 Blood Pressure 111/65 [Left] O2 Sat by Pulse 97 100 Oximetry - Reevaluation(s) Reevaluation #1: 01/03/22 20:23 Nausea and vomiting improved. Patient states she feels much better. ED Medical Decision Making - Lab Data Result diagrams: 01/03/22 17:48 01/03/22 17:48 - Radiology Data Radiology results: report reviewed ultrasound: FINDINGS: GESTATIONAL SAC: Well-defined oval shape and intrauterine in location. YOLK SAC: No significant abnormality. EMBRYO/FETUS: No significant abnormality. - [place]-Rump Length = 5.45 cm = 12.1 weeks.days - Heart Rate, beats per minute (if present) = 174 ADNEXA: No significant abnormality. FREE FLUID: None. ADDITIONAL FINDINGS: None. IMPRESSION: 1. Single, living intrauterine with estimated sonographic age of 12.1 weeks.days. - Medical Decision Making 26-year-old black female who is about 12 weeks gestation presents to the [facility] department for evaluation of persistent nausea vomiting and abdominal pain. She states that she has been using Zofran at home but still has had persistent nausea vomiting over past 2 to 3 days. She states that she has not developed pain and cramping in her abdominal area. She denies fever, vaginal bleeding, dysuria, and dizziness No gross abnormalities noted on exam or labs. Urine negative for urinary tract infection and ultrasound IUP at 12 weeks. Nausea vomiting mostly resolved after medication. Patient will be discharged home to follow-up with OB with prescription for Reglan to use as needed for nausea or vomiting. She is advised to return to the emergency department for any concerning symptoms. She verbalized understanding of and agreement with plan of care. Critical care attestation.: If time is entered above; I have spent that time in minutes in the direct care of this critically ill patient, excluding procedure time. ED Disposition Clinical Impression: Nausea and vomiting during prior to 22 weeks gestation Disposition: HOME / SELF CARE / HOMELESS Is pt being admited?: No Does the pt Need Aspirin: No Condition: Stable Instructions: Hyperemesis Gravidarum, Morning Sickness, [id number], Abdominal Pain (ED) Additional Instructions: Take medications as prescribed. Drink plenty of noncaffeinated fluids. Follow- up with [facility] for further evaluation and management. Return to the emergency department as needed. Prescriptions: Metoclopramide [Reglan] 10 mg PO TID PRN #21 tab PRN Reason: Nausea And Vomiting [facility]] - 3-5 Days Time of Disposition: 20:26
== END 2022-01-03 20:58 | disposition home or self-care (01) ==
LOC: ED 13:56
DX: O21.9 Vomiting of pregnancy, unspecified (principal); Z3A.12 12 weeks gestation of pregnancy; Z90.49 Acquired absence of other specified parts of digestive tract
CPT/HCPCS: 36415; 76801; 80053; 81001; 81025; 84702; 85027; 96361; 96374; 96375; 99284; J1200; J2405; J2765; J7030